=== PATIENT | female | born 1970 | race African-American/Black ===

== ENCOUNTER 2022-10-31 10:29 | Outpatient (CLI) | payer OTHER, SELFPAY ==
[2022-10-31 13:38] LABS: Basophils Absolute Auto 0.03 K/uL (0.00-0.30); Basophils Percent Auto 0.4 % (0.0-3.0); Eosinophils Absolute Auto 0.23 K/uL (0.00-0.50); Eosinophils Percent Auto 3.2 % (0.0-7.0); Hematocrit 31.6 % (33.0-51.0); Hemoglobin* 9.2 gm/dL (12.0-16.0); Immature Granulocytes Abs Auto 0.01 K/uL (0.00-0.30); Immature Granulocytes Pct Auto 0.1 %; Lymphocytes Absolute Auto 2.16 K/uL (0.90-2.90); Lymphocytes Percent Auto 30.2 % (20-44); Mean Corpuscular HGB Conc 29 gm/dL (32-36); Mean Corpuscular Hemoglobin 19 pg (26-34); Mean Corpuscular Volume 66 fL (80-100); Neutrophils Absolute Auto 4.29 K/uL (1.7-7.0); Neutrophils Percent Auto 60.1 % (42.0-72.0); Platelet Count* 432 K/uL (140-440); Red Blood Count 4.77 m/uL (4.00-5.20); White Blood Count* 7.15 K/uL (4.50-11.00)
[2022-10-31 13:46] LABS: Slide Review Reflex No
[2022-10-31 14:02] LABS: Albumin* 3.8 g/dL (3.3-5.0); Chloride* 104 mmol/L (96-114)
[2022-10-31 14:03] LABS: Potassium* 3.8 mmol/L (3.6-5.1); Sodium* 140 mmol/L (135-149)
[2022-10-31 14:05] LABS: Alkaline Phosphatase* 87 U/L (40-150); Aspartate Amino Transferase* 18 U/L (12-35); Bilirubin Total* 0.3 mg/dL (0.1-1.5); Blood Urea Nitrogen* 15 mg/dL (7-30); Carbon Dioxide* 28 mmol/L (20-32); Cholesterol* 141 mg/dL (90-199); Estimated Glomerular Filt Rate 68 ml/min; Glucose* 120 mg/dL (60-115); Total Protein* 6.9 g/dL (6.0-8.3); Triglycerides* 135 mg/dL (40-149)
[2022-10-31 14:06] LABS: Alanine Aminotransferase* 19 U/L (4-35); HDL Cholesterol* 54 mg/dL (>=50); LDL Cholesterol Calculated 60 mg/dL (<100)
[2022-10-31 14:07] LABS: Creatinine Urine 211.2 mg/dL
[2022-10-31 17:12] LABS: Microalbumin Creatinine Ratio 470 mg/g (0-30); Microalbumin Urine 100 mg/dL
[2022-11-02 15:44] LABS: Iron* 21 ug/dL (37-170)
[2022-11-02 15:54] LABS: Percent Iron Saturation 5 % (20-50); Total Iron Binding Capacity 387 ug/dL (265-497)
== END 2022-10-31 10:30 | disposition home or self-care (01) ==
PROVIDERS: PCP Nurse Practitioner Family; Visit Provider Nurse Practitioner Family
DX: E11.9 Type 2 diabetes mellitus without complications (principal); D50.9 Iron deficiency anemia, unspecified; E78.5 Hyperlipidemia, unspecified; I10 Essential (primary) hypertension; Z13.0 Encounter for screening for diseases of the blood and blood-forming organs and certain disorders involving the immune mechanism
CPT/HCPCS: 80053; 80061; 82043; 82570; 83540; 83550; 84443; 85025

== ENCOUNTER 2022-11-02 10:32 | Outpatient (CLI) | payer OTHER, SELFPAY ==
--- NOTE | 2022-11-02 11:00 | CRLHL7_ITS ---
For Patients: As a result of the Century Cures Act, medical imaging exams and procedure reports are released immediately into your electronic medical record. You may view this report before your referring provider. If you have questions, please contact your health care provider. INDICATION: Liver lesion, aortic aneurysm COMPARISON: Renal ultrasound 02/07/2022, CT chest 01/27/2022 TECHNIQUE: Real time guajardo scale imaging and color Doppler analysis was performed of the right upper quadrant. FINDINGS: The liver parenchyma is diffusely coarsened and heterogeneous. There is a hypodense lesion within the anterior liver measuring 6.0 x 4.1 x 5.8 cm which is not appreciated on the prior CT chest although the prior CT was done without contrast. Aneurysm of the abdominal aorta is present measuring 3.2 x 3.9 cm in transverse dimensions and extending over a length of 8.1 cm. The IVC is normal. Right kidney is normal without hydronephrosis and measures 11.4 cm. The visualized pancreas is unremarkable. The gallbladder is absent. The common bile duct measures 6 millimeters. No ascites. IMPRESSION: Hypodense intrahepatic mass measuring 6.0 x 4.1 x 5.8 cm, indeterminate. MRI with and without contrast recommended. Fusiform abdominal aortic aneurysm measuring up to 3.9 cm. Moderately severe hepatic steatosis. Status post cholecystectomy without biliary obstruction. Dictated by Palomo Diaz MD @ 11/02/2022 12:13:57 PM (Electronically Signed)
== END 2022-11-02 10:33 | disposition home or self-care (01) ==
PROVIDERS: PCP Nurse Practitioner Family; Visit Provider Nurse Practitioner Family
DX: K76.9 Liver disease, unspecified (principal); K76.0 Fatty (change of) liver, not elsewhere classified; I71.9 Aortic aneurysm of unspecified site, without rupture
CPT/HCPCS: 76705

== ENCOUNTER 2022-11-17 12:56 | Outpatient (CLI) | payer OTHER, SELFPAY ==
--- NOTE | 2022-11-17 13:00 | CRLHL7_ITS ---
For Patients: As a result of the Century Cures Act, medical imaging exams and procedure reports are released immediately into your electronic medical record. You may view this report before your referring provider. If you have questions, please contact your health care provider. Indication: Hypodense intrahepatic mass, indeterminate on abdominal US Technique: Multiphasic, multisequence MRI of the abdomen, liver protocol, without and with contrast. 20 mL of Dotarem administered intravenously Comparison: Ultrasound dated 11/02/2022 Findings: Somewhat limited by motion (patient and bowel) and body habitus. Non cirrhotic liver morphology. Diffuse hepatic steatosis. The lobulated large liver lesion seen on ultrasound in the inferior right hepatic lobe is also seen on this MRI, and is associated with capsular retraction, mildly T2 hyperintense, with exception of the rim, without restricted diffusion, and there is discontinuous nodular enhancement of the periphery, with gradual filling in until there is complete fill-in. No central scar seen. It measures approximately 5.3 x 3.5 cm. No intra or extrahepatic biliary ductal dilatation. No suspicious filling defects within the biliary system. Status post cholecystectomy. The pancreas parenchyma appears normal on fat saturated T1 weighted images. No suspicious pancreatic lesion following contrast administration. The spleen is normal in size. No ascites. The adrenal glands appear normal. The kidneys enhance symmetrically without hydronephrosis. No suspicious lymphadenopathy within the abdomen. The visualized bowel is not obstructed. The visceral arteries appear patent. No abdominal aortic aneurysm. The portal, hepatic, splenic, and mesenteric veins appear patent. The IVC and renal veins are patent. No pleural effusion in the lung bases. Incidentally noted on some of the coronal sequences obtained there also include the pelvis, is a very large uterus, with multiple large fibroids measuring at least 11.5 x 10 cm, but likely greater in some planes. The largest fibroid measures at least 7.3 x 6.7 cm. Incidentally noted is also intense enhancement and expansion of the L3 vertebral body, with enhancement of the tissues along the left side of the vertebral body, and the ventral epidural space the posterior elements on the left side is also involved. A classic hemangioma seen in the lower thoracic spine, with less avid enhancement, and no extension outside the vertebral body. Impression: 1. Diffuse hepatic steatosis. 2. The lesion in the liver, inferior right hepatic lobe measures 5.3 x 3.5 cm, and has most features of a hepatic hemangioma. The atypical hypo echogenicity on ultrasound is related to the underlying hepatic steatosis. However, the capsular retraction and lobulation of the lesion are slightly atypical thus, a follow-up in 6 months would be reasonable. 3. Intense enhancement and expansion of the L3 vertebral body, paravertebral enhancement including in the ventral epidural space effacing the thecal sac and involvement of the left posterior element. This is certainly atypical, however could represent an aggressive hemangioma and a more classic hemangioma seen in the thoracic spine. A CT of the lumbar spine could be helpful. 4. Very large fibroid uterus with multiple large fibroids, incompletely seen and evaluated. Dictated by Catalino Henderson MD @ 11/19/2022 5:52:40 PM (Electronically Signed)
== END 2022-11-17 12:57 | disposition home or self-care (01) ==
LOC: MRI 12:57
PROVIDERS: PCP Nurse Practitioner Family; Visit Provider Nurse Practitioner Family
DX: R16.0 Hepatomegaly, not elsewhere classified (principal); K76.9 Liver disease, unspecified; K76.0 Fatty (change of) liver, not elsewhere classified; D25.9 Leiomyoma of uterus, unspecified
CPT/HCPCS: 74183; A9575

== ENCOUNTER 2022-12-01 07:39 | Outpatient (CLI) | payer OTHER, SELFPAY ==
--- NOTE | 2022-12-01 07:43 | W.ANESCHARGE ---
Anesthesia Charges Start Date/Time Anesthesia Start Date: 12/01/22 Anesthesia Start Time: 08:34 Stop Date/Time Anesthesia Stop Date: 12/01/22 Anesthesia Stop Time: 09:15
--- NOTE | 2022-12-01 09:24 | W.ANESCHARGE ---
Anesthesia Charges Start Date/Time Anesthesia Start Date: 12/01/22 Anesthesia Start Time: 08:34 Stop Date/Time Anesthesia Stop Date: 12/01/22 Anesthesia Stop Time: 09:15
== END 2022-12-01 07:40 | disposition home or self-care (01) ==
PROVIDERS: PCP Nurse Practitioner Family; Visit Provider Internal Medicine
DX: D50.9 Iron deficiency anemia, unspecified (principal); K57.30 Diverticulosis of large intestine without perforation or abscess without bleeding; K21.9 Gastro-esophageal reflux disease without esophagitis
CPT/HCPCS: 00813; 43239; 45378; 88305; J2704

== ENCOUNTER 2022-12-04 09:34 | Outpatient (CLI) | payer OTHER, SELFPAY ==
--- NOTE | 2022-12-04 10:00 | CRLHL7_ITS ---
For Patients: As a result of the Century Cures Act, medical imaging exams and procedure reports are released immediately into your electronic medical record. You may view this report before your referring provider. If you have questions, please contact your health care provider. INDICATION: Low back pain. COMPARISON: 11/17/2022. Technique noncontrast CT lumbar spine FINDINGS: Degenerative retrolisthesis of L3 on L4 and L4 on L5 measures approximately 3 mm. No fractures. No vertebral body loss of height. No evidence injury. No suspicious osseous lesions. Vertebral body hemangioma T11. Trabeculated appearance of the L3 vertebral body with subtle bulging of the posterior margin. Findings most consistent with a large vertebral body hemangioma. Lumbar spondylosis with multilevel facet arthropathy. [id number] L1-2: No spinal canal neural foraminal narrowing. L2-3: Mild annular bulge. No spinal canal or neural foraminal narrowing. L3-4: Annular bulge. No narrowing of spinal canal. No neural foraminal narrowing. L4-5: Disc degeneration. Posterior disc bulge. Mild narrowing of spinal canal. No neural foraminal narrowing. L5-S1: Advanced disc degeneration. Loss disc height. Posterior disc bulge or disc osteophyte complex. No narrowing of spinal canal. No fern impingement of the traversing S1 nerve roots. Mild narrowing of the bilateral foramina. Mild facet arthropathy. Normal visualized SI joints. Normal paraspinal soft tissues. Cholecystectomy clips. IMPRESSION: 1. Degenerative retrolisthesis of L3 on L4 and L4 on L5. 2. No acute fractures. 3. 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 Associated subtle bulging of the posterior margin. Small vertebral body hemangioma T11. 4. Lumbar spondylosis. 5. At L4-5, mild narrowing of the spinal canal 6. At L5-S1, advanced disc degeneration. Posterior disc bulge or disc osteophyte complex. No narrowing of the spinal canal. Mild narrowing of the bilateral neural foramina Please note that all CT scans at this facility use dose modulation, iterative reconstruction, and/or weight-based dosing when appropriate to reduce radiation dose to as low as reasonably achievable. Dictated by Supa Yarbrough MD @ 12/06/2022 8:28:36 AM (Electronically Signed)
== END 2022-12-04 09:35 | disposition home or self-care (01) ==
LOC: CT 09:35
PROVIDERS: PCP Nurse Practitioner Family; Visit Provider Nurse Practitioner Family
DX: M54.50 Low back pain, unspecified (principal); M43.16 Spondylolisthesis, lumbar region; M47.896 Other spondylosis, lumbar region; M51.37 Other intervertebral disc degeneration, lumbosacral region; R93.5 Abnormal findings on diagnostic imaging of other abdominal regions, including retroperitoneum
CPT/HCPCS: 72131

== ENCOUNTER 2023-01-09 11:13 | Outpatient (CLI) | payer OTHER, SELFPAY ==
--- NOTE | 2023-01-09 11:30 | CRLHL7_ITS ---
For Patients: As a result of the Cures Act, medical imaging exams and procedure reports are released immediately into your electronic medical record. You may view this report before your referring provider. If you have questions, please contact your health care provider. BILATERAL SCREENING MAMMOGRAM WITH COMPUTER-AIDED DETECTION AND TOMOSYNTHESIS TECHNIQUE: CC and MLO views were obtained. These mammographic images have been obtained using full-field digital technique. These mammographic images were interpreted with the benefit of computer-aided detection. Breast Tomosynthesis was used in this interpretation. COMPARISON FILM: 11/29/21, 01/18/21, 08/11/19. FINDINGS: There are scattered areas of fibroglandular density IMPRESSION: There is no radiographic evidence for malignancy. ASSESSMENT: BI-RADS Category 1: Negative RECOMMENDATION: Routine screening mammogram in 1 year. A lay language report of this examination will be provided to the patient. Jing Anderson M.D. Diagnostic/Breast Radiologist [email or web address] Transcribed: 12:11 p.dalton xiao/Dictated by: Jing Anderson MD @ 01/09/2023 11:54:00 AM (Electronically Signed)
== END 2023-01-09 11:14 | disposition home or self-care (01) ==
LOC: MAMMO 11:14
PROVIDERS: PCP Nurse Practitioner Family; Visit Provider Nurse Practitioner Family
DX: Z12.31 Encounter for screening mammogram for malignant neoplasm of breast (principal)
CPT/HCPCS: 77063; 77067

== ENCOUNTER 2023-01-15 13:18 | Outpatient (RCR) | payer OTHER, SELFPAY | END 2023-01-30 13:31 | disposition home or self-care (01) | PROVIDERS: PCP Nurse Practitioner Family; Visit Provider Family Medicine | DX: M54.50 Low back pain, unspecified (principal); Z74.09 Other reduced mobility; M62.81 Muscle weakness (generalized); Z51.89 Encounter for other specified aftercare | CPT/HCPCS: 97110; 97140; 97161 ==

== ENCOUNTER 2023-01-18 13:58 | Outpatient (CLI) | payer OTHER, SELFPAY ==
--- NOTE | 2023-01-18 14:00 | CRLHL7_ITS ---
For Patients: As a result of the Century Cures Act, medical imaging exams and procedure reports are released immediately into your electronic medical record. You may view this report before your referring provider. If you have questions, please contact your health care provider. INDICATION: Spotting TECHNIQUE: Ultrasound pelvis transabdominal and transvaginal for better assessment or to better visualize the endometrium. Real time sonographic images with Spectral and color Doppler imaging of the ovaries were obtained. COMPARISON: None FINDINGS: Uterus: 10.8 centimeter x 7.6 centimeter x 12.4 centimeter. Normal echotexture of the myometrium. 6.6 centimeter x 6.0 centimeter x 6.9 centimeter right mid uterine fibroid. 4.2 centimeter x 4.2 centimeter x 4.5 centimeter left superior uterine fibroid. 2.9 centimeter x 3.6 centimeter x 4.6 centimeter left mid uterine fibroid. Endometrium: Transvaginal imaging was performed to better evaluate the endometrium. 1.9 centimeter in thickness. No sign of endometrial mass or fluid. Right ovary: Not visualized. Left ovary: Not visualized. Cul-de-sac: No significant free fluid. IMPRESSION: Three uterine fibroids with the largest measuring up to 6.9 centimeters. The ovaries are not visualized. Thickened endometrium at 1.9 centimeters. Dictated by Palomo Rosenberg MD @ 01/18/2023 3:28:35 PM (Electronically Signed)
== END 2023-01-18 13:59 | disposition home or self-care (01) ==
LOC: US 13:59
PROVIDERS: PCP Nurse Practitioner Family; Visit Provider Nurse Practitioner Family
DX: N92.3 Ovulation bleeding (principal); D25.9 Leiomyoma of uterus, unspecified; R93.89 Abnormal findings on diagnostic imaging of other specified body structures; N95.1 Menopausal and female climacteric states
CPT/HCPCS: 76830; 76856

== ENCOUNTER 2023-01-24 13:01 | Outpatient (CLI) | payer OTHER, SELFPAY ==
[2023-01-24 16:50] LABS: Chlamydia DNA Amplified* NOT DETECTED (No Detected); GC DNA Amplified* NOT DETECTED (No Detected)
== END 2023-01-24 13:02 | disposition home or self-care (01) ==
PROVIDERS: PCP Nurse Practitioner Family; Visit Provider Obstetrics & Gynecology
DX: N89.8 Other specified noninflammatory disorders of vagina (principal)
CPT/HCPCS: 0353U; 87491; 87591

== ENCOUNTER 2023-02-02 15:21 | Outpatient (CLI) | payer OTHER, SELFPAY ==
[2023-02-02 15:22] LABS: Basophils Absolute Auto 0.05 K/uL (0.00-0.30); Basophils Percent Auto 0.7 % (0.0-3.0); Eosinophils Absolute Auto 0.09 K/uL (0.00-0.50); Eosinophils Percent Auto 1.3 % (0.0-7.0); Hematocrit 41.4 % (33.0-51.0); Hemoglobin* 13.6 gm/dL (12.0-16.0); Immature Granulocytes Abs Auto 0.01 K/uL (0.00-0.30); Immature Granulocytes Pct Auto 0.1 %; Lymphocytes Absolute Auto 2.72 K/uL (0.90-2.90); Lymphocytes Percent Auto 39.3 % (20-44); Mean Corpuscular HGB Conc 33 gm/dL (32-36); Mean Corpuscular Hemoglobin 27 pg (26-34); Mean Corpuscular Volume 83 fL (80-100); Monocytes Percent Auto 7.4 % (0.0-11.0); Neutrophils Absolute Auto 3.54 K/uL (1.7-7.0); Neutrophils Percent Auto 51.2 % (42.0-72.0); Platelet Count* 353 K/uL (140-440); RDW Coefficient of Variation % 21.7 % (11.5-15.5); Red Blood Count 4.99 m/uL (4.00-5.20); White Blood Count* 6.92 K/uL (4.50-11.00)
[2023-02-02 15:33] LABS: Iron* 68 ug/dL (37-170)
[2023-02-02 15:37] LABS: Slide Review Reflex No
[2023-02-02 15:43] LABS: Percent Iron Saturation 22 % (20-50); Total Iron Binding Capacity 318 ug/dL (265-497)
== END 2023-02-02 15:22 | disposition home or self-care (01) ==
PROVIDERS: PCP Nurse Practitioner Family; Visit Provider Nurse Practitioner Family
DX: D50.9 Iron deficiency anemia, unspecified (principal)
CPT/HCPCS: 83540; 83550; 85025

== ENCOUNTER 2023-05-08 12:14 | Outpatient (CLI) | payer OTHER, SELFPAY | END 2023-05-08 12:15 | disposition home or self-care (01) | PROVIDERS: PCP Nurse Practitioner Family; Visit Provider Nurse Practitioner Family | DX: N93.9 Abnormal uterine and vaginal bleeding, unspecified (principal); N89.8 Other specified noninflammatory disorders of vagina | CPT/HCPCS: 83540; 83550; 85025 ==

== ENCOUNTER 2023-06-04 13:04 | Outpatient (CLI) | payer OTHER, SELFPAY ==
--- NOTE | 2023-06-04 13:00 | CRLHL7_ITS ---
For Patients: As a result of the Cures Act, medical imaging exams and procedure reports are released immediately into your electronic medical record. You may view this report before your referring provider. If you have questions, please contact your health care provider. INDICATION: Follow up liver lesion. TECHNIQUE: Right upper quadrant ultrasound. COMPARISON: November 02, 2022. Correlation is made with an MRI of the liver November 17, 2022. FINDINGS: Echogenic liver compatible with diffuse hepatic fatty infiltration. There is a slightly lobulated hypoechoic mass within the right hepatic lobe subcapsular location measuring 4.4 x 3.9 x 4.2 cm, previously 6.0 x 4.1 x 5.8 cm. According to the MRI report this may reflect an atypical hemangioma. Typically hemangiomas are hyperechoic but the liver is hyperechoic related to fatty infiltration and thus may give an atypical appearance of a presumed hemangioma. This is now somewhat smaller compared to the prior study. No biliary ductal dilatation. No right upper quadrant ascites. Surgically absent gallbladder. The extrahepatic common bile duct is normal at 7 mm. The visualized pancreas and right kidney are grossly unremarkable. The visualized aorta is of normal caliber. IMPRESSION: Hypoechoic, slightly lobulated mass right hepatic lobe measuring 4.4 x 3.9 x 4.2 cm, previously 6.0 x 4.1 x 5.8 cm. Please see MRI November 17, 2022 which suggested a cavernous hemangioma. Dictated by Roberto Philip MD @ 06/06/2023 12:20:29 PM (Electronically Signed)
== END 2023-06-04 13:05 | disposition home or self-care (01) ==
LOC: US 13:04
PROVIDERS: PCP Nurse Practitioner Family; Visit Provider Nurse Practitioner Family
DX: K76.9 Liver disease, unspecified (principal); R16.0 Hepatomegaly, not elsewhere classified
CPT/HCPCS: 76705

== ENCOUNTER 2023-11-19 10:15 | Outpatient (CLI) | payer OTHER, SELFPAY ==
[2023-11-19 15:32] LABS: SARS PCR* Negative SARS-CoV-2 (Negative)
== END 2023-11-19 10:16 | disposition home or self-care (01) ==
LOC: KYNREF 10:15
PROVIDERS: PCP Nurse Practitioner Family; Visit Provider Nurse Practitioner Family
DX: R09.89 Other specified symptoms and signs involving the circulatory and respiratory systems (principal); Z11.52 Encounter for screening for COVID-19
CPT/HCPCS: 87635

== ENCOUNTER 2023-11-27 10:35 | Outpatient (CLI) | payer OTHER, SELFPAY | END 2023-11-27 10:36 | disposition home or self-care (01) | PROVIDERS: PCP Nurse Practitioner Family; Visit Provider Nurse Practitioner Family | DX: Z13.0 Encounter for screening for diseases of the blood and blood-forming organs and certain disorders involving the immune mechanism (principal); Z13.21 Encounter for screening for nutritional disorder; E11.9 Type 2 diabetes mellitus without complications; E78.5 Hyperlipidemia, unspecified; I10 Essential (primary) hypertension | CPT/HCPCS: 80053; 80061; 82043; 82306; 82570; 84443; 85025 ==

== ENCOUNTER 2024-01-01 07:18 | Outpatient (CLI) | payer OTHER, SELFPAY ==
--- NOTE | 2024-01-01 07:15 | US_ITS ---
Patient: RADHA RANGEL Facility:?[facility] Patient ID:?[id number] Site Patient ID:?[id number]. Site :?1970 Study:?US-Abdomen AAA-01/01/2024 8:02:29 AM Ordering Physician:SHAVONNE Final Report: Examination: US abdominal aorta Indication: Recheck ectatic aorta Technique: Jones scale and color Doppler images of the aorta and common iliac arteries are obtained. Comparison: 06/04/2023 abdominal ultrasound Findings: Proximal aorta: 1.7 x 1.8 cm Mid aorta: 2.7 x 2.2 cm, previously measuring 2.9 cm Distal aorta: 1.4 x 1.3 cm Right common iliac artery: 1.2 x 1.5 cm Left common iliac artery: 1.1 x 1.4 cm Recommended imaging interval for ectatic aorta: 2.5-2.9 cm: 5 years Impression: No aortic aneurysm. Hepatic steatosis again noted. Dictated by Palomo Diaz MD @ 01/01/2024 10:48:23 AM Signed by:?Palomo Diaz MD @01/01/2024 10:48:23 AM (Electronic Signature)
== END 2024-01-01 07:19 | disposition home or self-care (01) ==
PROVIDERS: PCP Nurse Practitioner Family; Visit Provider Nurse Practitioner Family
DX: I71.9 Aortic aneurysm of unspecified site, without rupture (principal); K76.0 Fatty (change of) liver, not elsewhere classified
CPT/HCPCS: 76775

== ENCOUNTER 2024-01-09 13:35 | Outpatient (CLI) | payer OTHER, SELFPAY ==
--- NOTE | 2024-01-09 14:00 | US_ITS ---
Patient: RADHA RANGEL Facility:?[facility] Patient ID:?[id number] Site Patient ID:?[id number]. Site :?1970 Study:?US-Abdomen/Pelvis RENAL DOPPLER / INTERVENT RAD TO R-01/09/2024 2:53:50 PM Ordering Physician:?EDGAR PHILLIPS M.D. Final Report: INDICATION: Essential hypertension; difficult to control. COMPARISON: Ultrasound examination of the kidneys bilateral and duplex ultrasound evaluation renal arteries bilateral February 07, 2022. TECHNIQUE: Ultrasound examination the kidneys bilateral; duplex ultrasound evaluation renal arteries bilateral; color Doppler duplex assessment. FINDINGS: The right kidney measures 12.3 x 3.7 x 4.9 cm and the left kidney measures 12.1 x 5.7 x 6 cm. Normal echogenic pattern appearing cortex bilaterally. Normal thickness of the renal cortices bilaterally measuring 1.3 cm on the right and 1.5 cm on the left. Single renal artery on each side. Peak systolic velocity within the juxtarenal abdominal aorta measures 124 cm/second. Peak systolic velocity within the right renal artery measures 98 cm/second and the left renal artery 109 cm/second with calculated renal artery to aortic ratio 0.8 on the right and 1.2 on the left. The acceleration indices and the resistive indices are normal bilaterally. IMPRESSION: 1. Normal ultrasound examination of the kidneys on both sides. 2. No sonographic evidence of hemodynamically significant renal artery stenosis on either side. 3. No interval change Dictated by Sylvia Gómez MD @ 01/10/2024 10:39:38 AM Signed by:?Sylvia Gómez MD @01/10/2024 10:39:38 AM (Electronic Signature)
== END 2024-01-09 13:36 | disposition home or self-care (01) ==
LOC: US 13:37
PROVIDERS: PCP Nurse Practitioner Family; Visit Provider Internal Medicine Nephrology
DX: I10 Essential (primary) hypertension (principal)
CPT/HCPCS: 76775; 93975

== ENCOUNTER 2024-01-14 11:13 | Outpatient (CLI) | payer OTHER, SELFPAY ==
--- NOTE | 2024-01-14 10:45 | MM_ITS ---
Patient: RADHA RANGEL Facility:?[facility] Patient ID:?[id number] Site Patient ID:?[id number]. Site :?1970 Study:?XRay-Breast Bilateral 3D W/CAD-01/14/2024 11:47:39 AM Ordering Physician:Rea Final Report: BILATERAL SCREENING MAMMOGRAM WITH COMPUTER-AIDED DETECTION AND TOMOSYNTHESIS TECHNIQUE: CC and MLO views were obtained. These mammographic images have been obtained using full-field digital technique. These mammographic images were interpreted with the benefit of computer-aided detection. Breast tomosynthesis was used in this interpretation. COMPARISON FILM: 01/09/23, 11/29/21, 01/18/21. FINDINGS: There are scattered areas of fibroglandular density. IMPRESSION: There is no radiographic evidence for malignancy. ASSESSMENT: BI-RADS Category 2: Benign RECOMMENDATION: Routine screening mammogram in 1 year. A lay language report of this examination will be provided to the patient. PIPE ESCALANTE M.D. Diagnostic Radiologist [email or web address] D& Transcribed: 11:[address]/Dictated by: Pipe Escalante MD @ 01/15/2024 10:37:00 AM Signed by:?Pipe Escalante MD @01/15/2024 12:07:16 PM (Electronic Signature)
== END 2024-01-14 11:14 | disposition home or self-care (01) ==
LOC: MAMMO 11:14
PROVIDERS: PCP Nurse Practitioner Family; Visit Provider Nurse Practitioner Family
DX: Z12.31 Encounter for screening mammogram for malignant neoplasm of breast (principal)
CPT/HCPCS: 77063; 77067

== ENCOUNTER 2024-01-15 16:46 | Outpatient (CLI) | payer OTHER, SELFPAY | END 2024-01-15 16:47 | disposition home or self-care (01) | LOC: NFLDREF 01-16 06:44 | PROVIDERS: PCP Nurse Practitioner Family; Referring Provider Nurse Practitioner Family; Visit Provider Internal Medicine Nephrology | DX: I10 Essential (primary) hypertension (principal) | CPT/HCPCS: 80048; 82088; 84244 ==

== ENCOUNTER 2024-02-06 11:00 | Outpatient (CLI) | payer OTHER, SELFPAY | END 2024-02-06 11:01 | disposition home or self-care (01) | LOC: NFLDREF 02-07 07:19 | PROVIDERS: PCP Nurse Practitioner Family; Referring Provider Nurse Practitioner Family; Visit Provider Internal Medicine Nephrology | DX: I10 Essential (primary) hypertension (principal); Z79.899 Other long term (current) drug therapy; R82.90 Unspecified abnormal findings in urine | CPT/HCPCS: 80048; 80069; 82570; 84156; 87086 ==

== ENCOUNTER 2024-03-31 10:07 | Outpatient (CLI) | payer OTHER, SELFPAY | END 2024-03-31 10:08 | disposition home or self-care (01) | PROVIDERS: PCP Nurse Practitioner Family; Visit Provider Nurse Practitioner Family | DX: E55.9 Vitamin D deficiency, unspecified (principal); E11.9 Type 2 diabetes mellitus without complications | CPT/HCPCS: 82306 ==

== ENCOUNTER 2024-05-27 12:49 | Outpatient (CLI) | payer OTHER, SELFPAY ==
--- OUTSIDE RECORDS SUMMARY | 2024-05-30 13:04 | XMS_ITS | Encounter Summary ---
Author Organization [facility] Address [address] [place] [id number] Care Team Providers Care Sybase Developer Name Role Phone Elsewhere, Pcp Primary Care Provider Unavailabl e Reason for Visit * Appointment Request (Routine) - Closed Specialty Diagnoses / Procedures Referred By Contac t Referred To Contact Nephrology and Hypertension Referral ID Status Reason Start Date Expiration Date Visits Re quested Visits Authorized [id number] Closed 05/16/2024 05/16/2025 1 1 Encounter Details Date Type Department Care Team (Late st Contact Info) Description 05/29/2024 4:00 PM CDT External Outreach Division of Nephrology and Hypertension in [place], [place] [address] [place] [phone] Evelyn Cordon M.D., Ph.D. [address] [place] [phone] Arrived Social History Tobacco Use Types Packs/Day Years Used Date Smoking Tobacco: Never Passive Smoke Exposure: Past Smokeless Tobacco: Never Passive Exposure Comments:[place] Alcohol Use Standard Drinks/Week Comments Not Currently 0 (1 standard drink = 0.6 oz pur e alcohol) Humiliation, Afraid, Rape, and Kick questionnair e Answer Date Recorded Within the last year, have y ou been afraid of your partner or ex-partner? No 03/10/2023 Within the last year, have y ou been humiliated or emotionally abused in other ways by your partner or ex-partner? No Within the last year, have y ou been kicked, hit, slapped, or otherwise physically hurt by your partner or ex-partner? No 03/10/2023 Within the last year, have y ou been raped or forced to have any kind of sexual activity by your partner or ex-partner? No 03/10/2023 Social Connection and Isolation Panel [NHANES] A nswer Date Recorded Frequency of Communication w ith Friends and Family Once a week 10/17/2019 Frequency of Social Gatherin gs with Friends and Family Patient declined 10/17/2019 Attends Denominational Services 1 to 4 times per year 10/17/2019 Active Member of Clubs or Organizations Yes 10/17/2019 Attends Club or Organization Meetings 1 to 4 teresa es per year 10/17/2019 Marital Status 10/17/2019 AUDIT-C Answer Date Recorded Frequency of Alcohol Consumption Never 10/17/2019 Average Number of Drinks Patient declined 2019 Frequency of Binge Drinking Never 12/2019 Overall Financial Resource Strain (CARDIA) Answe r Date Recorded How hard is it for you to pa y for the very basics like food, housing, medical care, and heating? Not very hard 03/10/2023 [facility] - Occupational Stress Questionnaire Answer Date Recorded Feeling of Stress Only a little 10/17/2019 Exercise Vital Sign Answer Date Recorde d On average, how many days pe r week do you engage in moderate to strenuous exercise (like a brisk walk)? 0 days 03/10/2023 On average, how many minutes do you engage in exercise at this level? 0 min 03/10/2023 Hunger Vital Sign Answer Date Recorded Within the past 12 months, y ou worried that your food would run out before you got the money to buy more. Never true 03/10/20 23 Within the past 12 months, t he food you bought just didn't last and you didn't have money to get more. Never true 03/10/2023 PRAPARE - Transportation Answer Date Re corded In the past 12 months, has l ack of transportation kept you from medical appointments or from getting medications? No 02/13 In the past 12 months, has l ack of transportation kept you from meetings, work, or from getting things needed for daily living? No 03/10/2023 Nutrition Answer Date Recorded Nutrition: EVOO Fat Source Unknown 03/10 On average, how many serving s of fruits and vegetables do you eat per day (serving size is equal to 1 cup or approximately the size of a tennis ball)? 3-5 03/10/2023 Dental Answer Date Recorded Dental: Regular Dentist No 03/10/20 Employment Answer Date Recorded Employment status Unemployed/not in th e paid workforce but seeking employment 03/10/2023 Housing Stability Answer Date Recorded What is your living situation today? I have a [facility] place to live 03/10/2023 Education Answer Date Recorded What is the highest level of school you have completed or the highest degree you have received? Some college, no degree 10/17/2019 Sex and Gender Information Value Date Recorded Sex Assigned at Female 03/10/2023 7:28 PM CDT Gender Identity Female 10/28/2019 8:20 PM BUSINESS OFFICE COORDINATOR Sexual Orientation Straight 10/28/2019 8: 20 PM BUSINESS OFFICE COORDINATOR documented as of this encounter Plan of Treatment Not on file documented as of this encounter Visit Diagnoses Not on filedocumented in this encounter Care Teams Sybase Developer Relationship Specialty Start Date End Date Elsewhere, Pcp PCP - General Emergency Medicine 03/14/23 documented as of this encounter
--- OUTSIDE RECORDS SUMMARY | 2024-05-30 13:04 | XMS_ITS ---
Author Organization [facility] Address [address] [place] [address] Care Team Providers Care Audit Tech Name Role Phone Unavailable Unavailable Unavailable Surgery Details Not on file Complications Check Surgery Details section. Procedure Estimated Blood Loss Check Surgery Details section. Procedure Findings Check Surgery Details section. Procedure Specimens Taken Check Surgery Details section.
--- OUTSIDE RECORDS SUMMARY | 2024-05-30 13:04 | XMS_ITS | Clinical Summary ---
Author Organization [facility] Address [address] [place] [id number] Care Team Providers Care Soccer Ball Assembler Name Role Phone Elsewhere, Pcp Primary Care Provider Unavailabl e Source Comments Patient records contain information from all sites at [facility]. For routine questions regarding patient records, call [phone] during business hours, M-F 8:00 AM - 5:00 PM Central Time. Record requests for emergency care only can be directed to [phone] at any time.[facility] Allergies No known active allergies Medications Medication Sig Dispensed Refills Start Date End Date Status valsartan-hydroCHLOR Othiazide (DIOVAN-HCT) 160-25 mg per tablet Take 1 tablet by mouth daily. Active simvastatin (ZOCOR) 20 mg tablet Take 20 mg by mouth at bedtime. Active omeprazole (PriLOSEC) [address] capsule Take 40 mg by mouth every morning before breakfast. Active albuterol sulfate (ProAir RespiClick) 90 mcg/actuation aerosol powdr breath activated inhaler Inhale 2 puffs as needed for wheezing. Active dilTIAZem SR (CARDIZEM SR) 120 mg 12 hr capsule Take 120 mg by mouth 3 (three) times a day. 02/24/2023 Active Flovent HFA 220 mcg/actuation inhaler Inhale 2 puffs 2 (two) times a day. 02/26/2023 Active medroxyPROGESTERone (PROVERA) 10 mg tablet Take 10 mg by mouth daily. 03/13/2023 Active cloNIDine (CATAPRES) 0.3 mg tablet Take 0.3 mg by mouth 2 (two) times a day. 01/28/2023 Active metFORMIN XR (GLUCOPHAGE-XR) 500 mg 24 hr tablet Take 500 mg by mouth daily. 01/28/2023 Active citalopram (CeleXA) 10 mg tablet Take 10 mg by mouth daily. 04/25/2023 Active oxyCODONE (ROXICODONE) 5 mg immediate release tabletIndications:Ac roselia Pain Take 1 tablet (5 mg total) by mouth every 6 (six) hours as needed for pain Indication: Acute Pain. 4 tablet 08/22/2023 Active valsartan (DIOVAN) 160 mg tablet Take 1 tablet (160 mg total) by mouth daily. 90 tablet 3 01/01/2024 12/31/2024 Active spironolactone (ALDACTONE) 25 mg tablet Take 1 tablet (25 mg total) by mouth daily. 90 tablet 3 01/23/2024 01/22/2025 Active cloNIDine (CATAPRES) 0.1 mg tablet Take 2 tablets x 3 days, 1 tablet x 3 days, 1 tablet every other day x 2 days and then stop 11 tablet 03/05/2024 Active Active Problems Problem Noted Date Diagnosed Date Abnormal Uterine And Vaginal Bleeding Unspecifie d 08/21/2023 Assessment & Plan (08/21/2023 2:28 PM POOLING OPERATOR): Continue Provera Obesity Body Mass Index 30-39.9 Adult 08/21/2023 Assessment & Plan (08/21/2023 2:39 PM POOLING OPERATOR): Body mass index is 39.62 kg/m??. Hemangioma Site 04/04/2023 Lesion Spine Thoracic 12/25/2022 Assessment & Plan (08/21/2023 2:42 PM POOLING OPERATOR): She denies radicular symptoms and feels she has mild lower extremity weakness. She reports worsening of back pain with activity. She uses hemp cream as needed for pain management. Imaging was completed demonstrating hemangiomas at C6, T11 and an aggressive hemangioma at L3 with epidural and foraminal extension as well as extension into the left paraspinal region. She was evaluated by orthopedic surgery and was felt not to be a surgical candidate, and has been referred for radiation. Last dose of radiation April 27, 2023. Anxiety Disorder Unspecified 06/15/2021 Assessment & Plan (08/21/2023 2:29 PM POOLING OPERATOR): Continue Celexa Liver Disease 11/15/2020 Overview (08/21/2023): [place] enhancing lesion in the inferior right lobe of the liver measuring 8.4 x 5.5 cm - 09/2019 Assessment & Plan (08/21/2023 2:36 PM POOLING OPERATOR): [place] CT enhancing lesion in the inferior right lobe of the liver measuring 8.4 x 5.5 cm - 09/2019 Thoracic Aortic Aneurysm Without Rupture Unspeci fied 11/15/2020 Overview (08/21/2023): aneurysmal enlargement of ascending aorta anterior arch measuring 4.1 cm in maximal diameter - 09/[address] [place] Assessment & Plan (08/21/2023 2:39 PM POOLING OPERATOR): aneurysmal enlargement of ascending aorta anterior arch measuring 4.1 cm in maximal diameter - 09/[address] [place] Dyslipidemia 11/10/2020 Assessment & Plan (08/21/2023 2:32 PM POOLING OPERATOR): Continue simvastatin Lymphadenopathy 10/30/2019 Diabetes Mellitus Type 2 Without Complication Assessment & Plan (08/21/2023 2:32 PM POOLING OPERATOR): Lab Results Component Value Date HGBA1C 6.2 (H) 04/23/2023 Checks blood sugar at home and notes it ranges between 85-120. Denies episodes of hypoglycemia. Treated with metformin once daily. She will hold 24 hours prior to procedure. Asthma Mild Persistent 07/10/2019 Assessment & Plan (08/21/2023 2:30 PM POOLING OPERATOR): Currently on Flovent and p.r.n. albuterol. Patient currently feels breathing is at baseline. Reports using albuterol 2-3 times per day. Last exacerbation occurred May 2023. Notes that breathing feels at baseline today. Patient will continue all inhalers perioperatively, Gastro-Esophageal Reflux Dis ease With Esophagitis Without Bleeding 07/10/2019 Assessment & Plan (08/21/2023 2:33 PM POOLING OPERATOR): Asymptomatic on Prilosec which she will continue perioperatively Hypertension Essential Primary 07/10/2019 Assessment & Plan (08/21/2023 2:34 PM POOLING OPERATOR): Blood pressure 150/90. Treated with clonidine, diltiazem, and valsartan hydrochlorothiazide. She will continue the clonidine and diltiazem preoperatively. Hold valsartan/hydrochlorothiazide 24 hours prior to procedure. Resolved Problems Problem Noted Date Diagnosed Date Resolved Date Diabetes Mellitus NOS 04/10/20232022 Encounters Date Type Department Care Team Description 05/29/2024 4:00 PM CDT External Outreach Division of Nephrology and Hypertension in [place], [place] [address] [place] [address] Evelyn Cordon M.D., Ph.D. Arrived 03/13/2024 Refill Division of Nephrology and Hypertension in [place], [place] [address] [place] [address] Evelyn Cordon M.D., Ph.D. Med Refill 03/05/2024 11:00 AM CDT External Outreach Division of Nephrology and Hypertension in [place], [place] [address] [place] [address] Evelyn Cordon M.D., Ph.D. Hypertension Essential Primary (Primary Dx); Proteinuria from Last 3 Months Immunizations Name Administration Dates Next Due Influenza, Unspecified 09/27/2021 PCV13 05/13/2020 PPSV23 06/10/2021 Tdap 05/13/2020 influenza vaccine quad (FLUZ ONE/FLUARIX) (6 months and older)(PF) 10/31/2022,08/19/2020,08/18/2019 Family History Medical History Relation Name Comments Diabetes Father Mother Hyperlipidemia Father Mother Stroke Father Mother Colon cancer Mother Radha Palafox Hypertension Mother Radha Palafox Relation Name Status Comments Father Mother Alive Mother Radha Palafox Social History Tobacco Use Types Packs/Day Years Used Date Smoking Tobacco: Never Passive Smoke Exposure: Past Smokeless Tobacco: Never Tobacco Cessation:Counseling Given: Not Answered Passive Exposure Comments:Worked in [employer] for years Alcohol Use Standard Drinks/Week Comments [...] Friends and Family Patient declined 10/17/2019 Attends [employer] 1 to 4 times per year [...] care, and heating? Not very hard 03/10/2023 [facility] [place] of Occupat ional Health - Occupational Stress [...] money to buy more. Never true 03/10/20 Within the past 12 months, t he [...] your living situation today? I have a [facility] place to live 03/10/2023 Education Answer Date Recorded What is the highest level of school you have completed or the highest degree you have received? Some college, no degree 10/17/2019 Sex and Gender Information Value Date Recorded Sex Assigned at Female 03/10/2023 7:28 PM CDT Gender Identity Female 10/28/2019 8:20 PM POOLING OPERATOR Sexual Orientation Straight 10/28/2019 8: 20 PM POOLING OPERATOR Last Filed Vital Signs Vital Sign Reading Time Taken Comments Blood Pressure 134/73 08/22/2023 2:30 PM POOLING OPERATOR Pulse 70 08/22/2023 2:40 PM POOLING OPERATOR Temperature 36.7 ??C (98 ??F) 08/22/2023 12:06 PM POOLING OPERATOR Respiratory Rate 12 08/22/2023 2:41 PM POOLING OPERATOR Oxygen Saturation 95% 08/22/2023 2:40 PM POOLING OPERATOR Inhaled Oxygen Concentration - - Weight 114 kg (252 lb 6.4 oz) 10/29/2023 3:13 PM POOLING OPERATOR Height 165.1 cm (5' 5) 08/21/2023 2:55 PM POOLING OPERATOR Body Mass Index 42 08/21/2023 2:55 PM POOLING OPERATOR Plan of Treatment Health Maintenance Due Date Last Done Comments CT Colonography 1970 Cologuard 1970 Colonoscopy 1970 Colorectal Cancer Surveillance 1970 Diabetic Office Visit with Foot Exam 1970 Dilated Eye Exam 1970 HIV Screening 1970 Hepatitis C Screening 1970 Urine Albumin 1970 Hepatitis B Vaccines (1 of 3 - 19+ 3-dose series) 1989 Zoster Vaccines (1 of 2) 1989 COVID-19 Vaccine (3 - Moderna risk series) 01/05/2021 12/08/2020, 11/10/2020 Abdominal Ultrasound 08/28/2021 02/25/2021 Mammogram 01/18/2022 01/18/2021, 04/0 03/2021, 08/11/2019 Cervical Cancer Screening 08/14/2022 08/14/2019 Depression Screening (Annual PHQ-2) 10/15/2023 Hemoglobin A1C 10/24/2023 04/23/2023, 09/0 10/2020, 11/15/2020, Additional history exists Office Visit for Blood Pressure Check / Re-check 11/21/2023 08/21/2023 Influenza Vaccine (#1) 2024 , 09/27/2021, 08/19/2020, Additional history exists Creatinine Level (Kidney Function Test) 02/06/2025 02/07/2024, 10/29/2023, 04/23/2023, Additional history exists Potassium Level 02/06/2025 02/07/2024, 07, 02/04/2021, Additional history exists Sodium Level 02/06/2025 02/07/2024, 071 , 02/04/2021, Additional history exists Lipid (Cholesterol) Screening 11/15/2025 11/15/2020 Pneumococcal vaccine (0-64 years) (3 of 3 - PPSV23 or PCV20) 06/10/2026 06/10/2021, 05/13/2020 DTaP,Tdap,and Td Vaccines (3 - Td or Tdap) 12/24/2033 12/25/2023, 05/13/2020 HPV Vaccines Aged Out No longer eligi ble based on patient's age to complete this topic Medical Devices Implanted Type Area Watch Technician Device Identifier Shelf Expiration Date Model / Serial / Lot Cmnt W/Mxr Kyp - [id number] Implanted:Qty: 1 on 08/22/2023 by Jasper Moreno M.D. at [facility] [employer] 07/14/2025 [id number] / / [id number] Procedures Procedure Name Priority Date/Time Associated Diagnosis Comments CREATININE WITH EGFR, S/P Routine 10/29/2023 8:41 AM POOLING OPERATOR Hemangioma Site HEMOGLOBIN A1C, B Routine 04/23/2023 3:5 8 PM CDT Diabetes Mellitus Type 2 Without Complication (HCC) BASIC METABOLIC PANEL, S/P Routine 04/23/2023 3:58 PM CDT Preanesthetic Medical Exam from Last 3 Months or Most Recently Relevant to Health Maintenance Results * (ABNORMAL) Creatinine with Estimated GFR (10/29/2023 8:41 AM POOLING OPERATOR) Creatinine 1.17(H) 0.59 - 1.04 mg/dL 10/29/2023 9:33 AM POOLING OPERATOR DTL Estimated GFR (eGFR) 56(L) >=60 mL/min/BSA 10/29/2023 9:33 AM POOLING OPERATOR DTL Comment: Estimated GFR calculated using the 2020 CKD_EPI creatinine equation. Blood (Blood, Venous) 10/29/2023 8:41 AM POOLING OPERATOR 10/29/2023 9:11 AM POOLING OPERATOR Erasto Bear M.D. LAB BLOOD ADD-ON [facility] [address] [place] [address], [place] [facility] [address] [place] [address] * (ABNORMAL) Hemoglobin A1c (04/23/2023 3:58 PM CDT) Hemoglobin A1c, B 6.2(H) 4.0 - 5.6 % 04/23/2023 4:42 PM CDT DTL Comment: Hemoglobin A1c values of 5.7-6.4 percent indicate an increased risk for developing diabetes mellitus. In diabetic patients, HbA1c goals should be discussed with healthcare provider. Blood (Blood, Venous) 04/23/2023 3:58 PM CDT 04/23/2023 4:12 PM CDT Shawna March APRNNChristine, M.S.N. LAB BLO OD ADD-ON [facility] [address] [place] [address], [facility] [address] [place] [address] * (ABNORMAL) Basic Metabolic Panel (04/23/2023 3:58 PM CDT) Potassium, S 4.2 3.6 - 5.2 mmol/L 04/23/2023 4:45 PM CDT DTL Sodium, S 139 135 - 145 mmol/L 04/23/2023 4:45 PM CDT DTL Chloride, S 100 98 - 107 mmol/L 04/23/2023 4:45 PM CDT DTL Bicarbonate, S 29 22 - 29 mmol/L 04/23/2023 4:45 PM CDT DTL Anion Gap 10 7 - 15 04/23/2023 4:45 PM CDT DTL BUN (Blood Urea Nitrogen), S 15 6 - 21 mg/dL 04/23/2023 4:45 PM CDT DTL Creatinine 1.05(H) 0.59 - 1.04 mg/dL 04/23/2023 4:45 PM CDT DTL Estimated GFR (eGFR) 64 >=60 mL/min/BSA 04/23/2023 4:45 PM CDT DTL Comment: Estimated GFR calculated using the 2020 CKD_EPI creatinine equation. Calcium, Total, S 9.4 8.6 - 10.0 mg/dL 04/23/2023 4:45 PM CDT DTL Glucose, S 90 70 - 140 mg/dL 04/23/2023 4:45 PM CDT DTL Blood (Blood, Venous) 04/23/2023 3:58 PM CDT 04/23/2023 4:29 PM CDT Jennifer Herrera APRN C.N.P., M.S.N. LAB BLO OD ADD-ON [facility] [address] [place] [address], [place] DTL [facility] [address] [place] [address] from Last 3 Months or Most Recently Relevant to Health Maintenance Care Teams Soccer Ball Assembler Relationship Specialty Start Date End Date Elsewhere, Pcp PCP - General Emergency Medicine 03/14/23
--- OUTSIDE RECORDS SUMMARY | 2024-05-30 13:04 | XMS_ITS | Encounter Summary ---
Author Organization [facility] Address [address] [place] [address] Care Team Providers Care Erecting Crane Operator Name Role Phone Elsewhere, Pcp Primary Care Provider Unavailabl e Reason for Visit * Appointment Request (Routine) - Closed Specialty Diagnoses / Procedures Referred By Contchandrika t Referred To Contact Nephrology and Hypertension Referral ID Status Reason Start Date Expiration Date Visits Re quested Visits Authorized [id number] Closed 01/24/2024 01/23/2025 1 1 Encounter Details Date Type Department Care Team (Latest Contact Info) Description 03/05/2024 11:00 AM CDT External Outreach Division of Nephrology and Hypertension in [place], [place] [address] [place] [address] Edgar Cordon M.D., Ph.D. [address] [place] [phone] Hypertension Essential Primary (Primary Dx); Proteinuria Social History Tobacco Use Types Packs/Day Years [...] Friends and Family Patient declined 10/17/2019 Attends [employer] 1 to 4 times per year [...] care, and heating? Not very hard 03/10/2023 [facility] of Occupat ional Health - Occupational Stress [...] your living situation today? I have a [facility] place to live 03/10/2023 Education Answer Date Recorded What is the highest level of school you have completed or the highest degree you have received? Some college, no degree 10/17/2019 Sex and Gender Information Value Date Recorded Sex Assigned at Female 03/10/2023 7:28 PM CDT Gender Identity Female 10/28/2019 8:20 PM DIRECTOR OF ASSESSMENT Sexual Orientation Straight 10/28/2019 8: 20 PM DIRECTOR OF ASSESSMENT documented as of this encounter Progress Notes * Edgar Cordon M.D., Ph.D. - 03/05/2024 11:00 AM CDT PROGRESS NOTE SUBJECTIVE CHIEF COMPLAINT / REASON FOR VISIT Follow up resistant hypertension and proteinuria [facility] Outreach Visit Location: [facility] HISTORY OF PRESENT ILLNESS Pinky Land is a 53 y.o. female who is seen for follow up. Patient has history of difficult to control blood pressure and nephrotic range proteinuria. She has been started on Wegovy 2 months ago. She has lost 20 lbs since starting Wegovy, her dose was increased about 3 weeks ago. She has noticed borderline low blood pressure and held the use of valsartan/HCTZ and valsartan alone pills. She cut down her clonidine to 0.3 mg daily. She has not noticed any rebound hypertension with these changes in medications. OBJECTIVE BP 131/85 DIAGNOSTICS I have reviewed available labs in detail with patient. ASSESSMENT / PLAN Patient was initially referred for resistant hypertension. She had a significant improvement on BP after weight loss of 20 lbs. We will wean off clonidine by decreasing it to 0.2 mg daily for 3 days,down to 0.1 mg daily for 3 days, then 0.1 mg every other day x 2 days and then stop. If required, she can restart valsartan alone or valsartan plus HCTZ (patient has both prescriptions) according to her BP readings. I anticipate she will require either of these medications after clonidine is discontinued. She will continue to monitor her BP regularly at home. Her nephrotic range proteinuria has decreased significantly to 1 g (from 3+ g per day). GLP1 agonists are helpful to improve proteinuria plus her BP is better controlled. We will reassess in 3 monthswith a 24 hr urine collection. Return visit in 3 months, patient to contact us back sooner as needed to adjust her BP meds. Kennedi Li M.D., Ph.D. documented in this encounter Miscellaneous Notes * Addendum Note - Edgar Cordon M.D., Ph.D. - 03/05/2024 11:00 AM CDT Addended by: EDGAR CORDON on: 03/05/2024 02:00 PM Modules accepted: Orders documented in this encounter Plan of Treatment Not on file documented as of this encounter Visit Diagnoses Diagnosis Hypertension Essential Primary- Primary Proteinuria documented in this encounter Care Teams Erecting Crane Operator Relationship Specialty Start Date End Date Elsewhere, Pcp PCP - General Emergency Medicine 03/14/23 documented as of this encounter
--- OUTSIDE RECORDS SUMMARY | 2024-05-30 13:04 | XMS_ITS | Encounter Summary ---
Author Organization [facility] Address [address] [place] [address] Care Team Providers Care Command And Control Officer Name Role Phone Elsewhere, Pcp Primary Care Provider Unavailabl e Reason for Visit * Reason Comments Med Refill Encounter Details Date Type Department Care Team (Late st Contact Info) Description 03/13/2024 Refill Division of Nephrology and Hypertension in [place], [place] [address] [place] [phone] Evelyn Cordon M.D., Ph.D. [address] [place] [address] Med Refill Social History Tobacco Use Types Packs/Day Years [...] Friends and Family Patient declined 10/17/2019 Attends [employer] 1 to 4 times per year [...] care, and heating? Not very hard 03/10/2023 [facility] of Occupat ional Health - [...] your living situation today? I have a [facility] place to live 03/10/2023 Education Answer Date Recorded What is the highest level of school you have completed or the highest degree you have received? Some college, no degree 10/17/2019 Sex and Gender Information Value Date Recorded Sex Assigned at Female 03/10/2023 7:28 PM CDT Gender Identity Female 10/28/2019 8:20 PM MOTORS AND GENERATORS INSPECTOR Sexual Orientation Straight 10/28/2019 8: 20 PM MOTORS AND GENERATORS INSPECTOR documented as of this encounter Plan of Treatment Not on file documented as of this encounter Visit Diagnoses Not on filedocumented in this encounter Care Teams Command And Control Officer Relationship Specialty Start Date End Date Elsewhere, Pcp PCP - General Emergency Medicine 03/14/23 documented as of this encounter
--- OUTSIDE RECORDS SUMMARY | 2024-05-30 13:04 | XMS_ITS | Referral Summary ---
Author Organization [facility] Address [address] [place] [id number] Care Team Providers Care Tax Map Technician Name Role Phone Elsewhere, Pcp Primary Care Provider Unavailabl e Source Comments Patient records contain information from all sites at [facility]. For routine questions regarding patient records, call [phone] during business hours, M-F 8:00 AM - 5:00 PM Central Time. Record requests for emergency care only can be directed to [phone] at any time.[facility] Encounters Date Type Department Care Team Description 05/29/2024 4:00 PM CDT External Outreach Division of Nephrology and Hypertension in [place], [place] [address] [place] [address] Evelyn Cordon M.D., Ph.D. Arrived 03/13/2024 Refill Division of Nephrology and Hypertension in [place], [place] [address] [place] [address] Evelyn Cordon M.D., Ph.D. Med Refill 03/05/2024 11:00 AM CDT External Outreach Division of Nephrology and Hypertension in [place], [place] [address] [place] [address] Evelyn Cordon M.D., Ph.D. Hypertension Essential Primary (Primary Dx); Proteinuria from Last 3 Months Allergies No known active allergies Medications Medication [...] oxyCODONE (ROXICODONE) 5 mg immediate release tabletIndications:Ac [place] Pain Take 1 tablet (5 mg total) [...] 08/21/2023 Assessment & Plan (08/21/2023 2:28 PM AUTO REPAIR SHOP MANAGER): Continue Provera Obesity Body Mass Index 30-39.9 Adult 08/21/2023 Assessment & Plan (08/21/2023 2:39 PM AUTO REPAIR SHOP MANAGER): Body mass index is 39.62 kg/m??. Hemangioma Site 04/04/2023 Lesion Spine Thoracic 12/25/2022 Assessment & Plan (08/21/2023 2:42 PM AUTO REPAIR SHOP MANAGER): She denies radicular symptoms and feels she [...] 06/15/2021 Assessment & Plan (08/21/2023 2:29 PM AUTO REPAIR SHOP MANAGER): Continue Celexa Liver Disease 11/15/2020 Overview (08/21/2023): [place] CT enhancing lesion in the inferior right lobe of the liver measuring 8.4 x 5.5 cm - 09/2019 Assessment & Plan (08/21/2023 2:36 PM AUTO REPAIR SHOP MANAGER): [place] CT enhancing lesion in the inferior right lobe of the liver measuring 8.4 x 5.5 cm - 09/2019 Thoracic Aortic Aneurysm Without Rupture Unspeci fied 11/15/2020 Overview (08/21/2023): aneurysmal enlargement of ascending aorta anterior arch measuring 4.1 cm in maximal diameter - 09/[address] [place] Assessment & Plan (08/21/2023 2:39 PM AUTO REPAIR SHOP MANAGER): aneurysmal enlargement of ascending aorta anterior arch measuring 4.1 cm in maximal diameter - 09/[address] [place] Dyslipidemia 11/10/2020 Assessment & Plan (08/21/2023 2:32 PM AUTO REPAIR SHOP MANAGER): Continue simvastatin Lymphadenopathy 10/30/2019 Diabetes Mellitus Type 2 Without Complication Assessment & Plan (08/21/2023 2:32 PM AUTO REPAIR SHOP MANAGER): Lab Results Component Value Date HGBA1C 6.2 (H) 04/23/2023 Checks blood sugar at home and notes it ranges between 85-120. Denies episodes of hypoglycemia. Treated with metformin once daily. She will hold 24 hours prior to procedure. Asthma Mild Persistent 07/10/2019 Assessment & Plan (08/21/2023 2:30 PM AUTO REPAIR SHOP MANAGER): Currently on Flovent and p.r.n. albuterol. Patient currently feels breathing is at baseline. Reports using albuterol 2-3 times per day. Last exacerbation occurred May 2023. Notes that breathing feels at baseline today. Patient will continue all inhalers perioperatively, Gastro-Esophageal Reflux Dis ease With Esophagitis Without Bleeding 07/10/2019 Assessment & Plan (08/21/2023 2:33 PM AUTO REPAIR SHOP MANAGER): Asymptomatic on Prilosec which she will continue perioperatively Hypertension Essential Primary 07/10/2019 Assessment & Plan (08/21/2023 2:34 PM AUTO REPAIR SHOP MANAGER): Blood pressure 150/90. Treated with clonidine, diltiazem, and valsartan hydrochlorothiazide. She will continue the clonidine and diltiazem preoperatively. Hold valsartan/hydrochlorothiazide 24 hours prior to procedure. Resolved Problems Problem Noted Date Diagnosed Date Resolved Date Diabetes Mellitus NOS 04/10/20232022 Immunizations Name Administration Dates Next Due Influenza, Unspecified 09/27/2021 PCV13 05/13/2020 PPSV23 06/10/2021 Tdap 05/13/2020 influenza vaccine quad (FLUZ ONE/FLUARIX) (6 months and older)(PF) 10/31/2022,08/19/2020,08/18/2019 Social History Tobacco Use Types Packs/Day Years Used Date Smoking Tobacco: Never Passive Smoke Exposure: Past Smokeless Tobacco: Never Tobacco Cessation:Counseling Given: Not Answered Passive Exposure Comments:Worked in [employer] for years Alcohol Use Standard Drinks/Week Comments [...] Friends and Family Patient declined 10/17/2019 Attends [employer] Services 1 to 4 times per year [...] care, and heating? Not very hard 03/10/2023 [facility] - Occup[facility] Stress [...] your living situation today? I have a [facility] to live 03/10/2023 Education Answer Date Recorded What is the highest level of school you have completed or the highest degree you have received? Some college, no degree 10/17/2019 Sex and Gender Information Value Date Recorded Sex Assigned at Female 03/10/2023 7:28 PM CDT Gender Identity Female 10/28/2019 8:20 PM AUTO REPAIR SHOP MANAGER Sexual Orientation Straight 10/28/2019 8: 20 PM AUTO REPAIR SHOP MANAGER Last Filed Vital Signs Vital Sign Reading Time Taken Comments Blood Pressure 134/73 08/22/2023 2:30 PM AUTO REPAIR SHOP MANAGER Pulse 70 08/22/2023 2:40 PM AUTO REPAIR SHOP MANAGER Temperature 36.7 ??C (98 ??F) 08/22/2023 12:06 PM AUTO REPAIR SHOP MANAGER Respiratory Rate 12 08/22/2023 2:41 PM AUTO REPAIR SHOP MANAGER Oxygen Saturation 95% 08/22/2023 2:40 PM AUTO REPAIR SHOP MANAGER Inhaled Oxygen Concentration - - Weight 114 kg (252 lb 6.4 oz) 10/29/2023 3:13 PM AUTO REPAIR SHOP MANAGER Height 165.1 cm (5' 5) 08/21/2023 2:55 PM AUTO REPAIR SHOP MANAGER Body Mass Index 42 08/21/2023 2:55 PM AUTO REPAIR SHOP MANAGER Plan of Treatment Not on file Medical Devices Implanted Type Area Gang Plank Workman Device Identifier Shelf Expiration Date Model / Serial / Lot Cmnt W/Mxr Kyp - [id number] Implanted:Qty: 1 on 08/22/2023 by Jasper Moreno M.D. at [facility] [employer] 07/14/2025 [id number] / / [id number] Procedures Procedure Name Priority Date/Time Associated Diagnosis Comments CREATININE WITH EGFR, S/P Routine 10/29/2023 8:41 AM AUTO REPAIR SHOP MANAGER Hemangioma Site HEMOGLOBIN A1C, B Routine 04/23/2023 3:5 8 PM CDT Diabetes Mellitus Type 2 Without Complication (HCC) BASIC METABOLIC PANEL, S/P Routine 04/23/2023 3:58 PM CDT Preanesthetic Medical Exam from Last 3 Months or Most Recently Relevant to Health Maintenance Results * (ABNORMAL) Creatinine with Estimated GFR (10/29/2023 8:41 AM AUTO REPAIR SHOP MANAGER) Creatinine 1.17(H) 0.59 - 1.04 mg/dL 10/29/2023 9:33 AM AUTO REPAIR SHOP MANAGER DTL Estimated GFR (eGFR) 56(L) >=60 mL/min/BSA 10/29/2023 9:33 AM AUTO REPAIR SHOP MANAGER DTL Comment: Estimated GFR calculated using the 2020 CKD_EPI creatinine equation. Blood (Blood, Venous) 10/29/2023 8:41 AM AUTO REPAIR SHOP MANAGER 10/29/2023 9:11 AM AUTO REPAIR SHOP MANAGER Erasto Bear M.D. LAB BLOOD ADD-ON [facility] [address] [place] [address], [facility] DTL [facility] [address] [place] [address] * (ABNORMAL) Hemoglobin A1c (04/23/2023 3:58 PM CDT) Hemoglobin A1c, B 6.2(H) 4.0 - 5.6 % 04/23/2023 4:42 PM CDT DTL Comment: Hemoglobin A1c values of 5.7-6.4 percent indicate an increased risk for developing diabetes mellitus. In diabetic patients, HbA1c goals should be discussed with healthcare provider. Blood (Blood, Venous) 04/23/2023 3:58 PM CDT 04/23/2023 4:12 PM CDT Evangelist March APRN.N.Oriana., M.S.N. LAB BLO OD ADD-ON [facility] [address] [place] [address], [facility] DTL [facility] [address] [place] [address] * (ABNORMAL) Basic Metabolic Panel (04/23/2023 3:58 [...] CDT 04/23/2023 4:29 PM CDT Jennifer Herrera APRN, C.N.P., M.S.N. LAB BLO OD ADD-ON [facility] [address] [place] [address], [place] [facility] [address] [place] [address] from Last 3 Months or Most Recently Relevant to Health Maintenance Care Teams Tax Map Technician Relationship Specialty Start Date End Date Elsewhere, Pcp PCP - General Emergency Medicine 03/14/23
--- OUTSIDE RECORDS SUMMARY | 2024-05-30 13:05 | XMS_ITS | Encounter Summary ---
Author Organization [facility] Address [address] [place] [address] Care Team Providers Care Lens Cutter Name Role Phone Elsewhere, Pcp Primary Care Provider Unavailabl e Encounter Details Date Type Department Care Team (Late st Contact Info) Description 02/08/2024 Orders Only Department of Radiation Oncology in [place], [place] [address] [place] [phone] Raven Alonzo, MPAS, P.A.-C. [address] [place] [phone] Social History Tobacco Use Types Packs/Day Years [...] Friends and Family Patient declined 10/17/2019 Attends [employer] Services 1 to 4 times per year [...] care, and heating? Not very hard 03/10/2023 [facility] - Occupational [...] your living situation today? I have a [facility] place to live 03/10/2023 Education Answer Date Recorded What is the highest level of school you have completed or the highest degree you have received? Some college, no degree 10/17/2019 Sex and Gender Information Value Date Recorded Sex Assigned at Female 03/10/2023 7:28 PM CDT Gender Identity Female 10/28/2019 8:20 PM FUNERAL LOCATION MANAGER Sexual Orientation Straight 10/28/2019 8: 20 PM FUNERAL LOCATION MANAGER documented as of this encounter Plan of Treatment Not on file documented as of this encounter Visit Diagnoses Not on filedocumented in this encounter Care Teams Lens Cutter Relationship Specialty Start Date End Date Elsewhere, Pcp PCP - General Emergency Medicine 03/14/23 documented as of this encounter
--- OUTSIDE RECORDS SUMMARY | 2024-05-30 13:05 | XMS_ITS | Clinical Summary ---
Author Organization [facility] Address [place], [place] [address] Care Team Providers Care Car Sales Consultant Name Role Phone Cori Rogers NP Primary Care Provider [phone] Allergies No known active allergies Medications Medication Sig Dispensed Refills Start Date End Date Status allopurinol (ZYLOPRIM) 100 mg tablet allopurinol 100 mg tablet Active atenolol (TENORMIN) 100 mg tablet atenolol 100 mg tablet Active cloNIDine HCl (CATAPRES) 0.2 mg tablet Take 0.2 mg by mouth. 08/15/2019 Active cloNIDine HCl (CATAPRES) 0.1 mg tablet clonidine HCl 0.1 mg tablet Active fluticasone furoate-vilantero l (BREO ELLIPTA) 100-25 mcg/dose inhaler Breo Ellipta 100 mcg-25 mcg/dose powder for inhalation Active fluticasone furoate-vilantero l (BREO ELLIPTA) 200mcg/25mcg inhaler Inhale 1 Puff by mouth. 09/01/2019 Active hepatitis B vaccine adult, PF, (ENGERIX-B, PF,) 20 mcg/mL syringe Engerix-B (PF) 20 mcg/mL intramuscular syringe Active iron,carbonyl-vit barragan C (VITRON-C) 65 mg iron- 125 mg Delayed-Release tablet Take 1 Tab by mouth. 08/15/2019 Active measles, mumps & rubella vaccine (M-M-R II, PF,) 1,000-12,500 TCID50/0.5 mL injection M-M-R II (PF) 1,000-12,500 TCID50/0.5 mL subcutaneous solution Active metFORMIN (GLUCOPHAGE) 500 mg tablet metformin 500 mg tablet Active NIFEdipine (PROCARDIA XL) 60 mg Extended-Release tablet nifedipine ER 60 mg tablet,extended release 24 hr Active NIFEdipine (ADALAT CC) 90 mg Extended-Release tablet Take 90 mg by mouth. 08/18/2019 Active omeprazole (PRILOSEC) 40 mg Delayed-Release capsule omeprazole 40 mg capsule,delayed release 08/18/2019 Active simvastatin (ZOCOR) 20 mg tablet simvastatin 20 mg tablet Active valsartan-hydroch lorothiazide (DIOVAN HCT) 160-25 mg per tablet Take 1 Tab by mouth. Active cyclobenzaprine (FLEXERIL) 10 mg tabletIndications :Cervical radiculopathy, acute Take 1 tablet by mouth 3 times daily if needed for Muscle Spasm. 15 tablet 09/20/2019 Active oxyCODONE (ROXICODONE) 5 mg immediate release tabletIndications :Pain, dental Take 1 Tablet (5 mg) by mouth every 6 hours if needed for Pain. 6 Tablet 04/25/2024 Active amoxicillin-clavu lanate 875-125 mg tablet (AUGMENTIN)Indica tions:Pain, dental Take 1 Tablet by mouth two times daily with meals for 5 days. 10 Tablet 04/25/2024 04/30/2024 Active Problems Problem Noted Date Diagnosed Date Diabetes 09/20/2019 Chronic pain of right knee 07/10/2019 Essential hypertension 07/10/2019 Gastroesophageal reflux disease with esophagitis 07/10/2019 Mild persistent asthma without complication 06/16 Prediabetes 07/10/2019 Encounters Date Type Department Care Team Description 04/25/2024 7:42 PM CDT - 04/25/2024 8:51 PM CDT Emergency [facility] [address] [place] [address] Toñito Goldman MD Pain, dental (Primary Dx) Discharge Disposition: Home Self Care 04/25/2024 Travel from Last 3 Months Immunizations Name Administration Dates Next Due Influenza, IIV4 08/18/2019 Social History Tobacco Use Types Packs/Day Years Used Date Smoking Tobacco: Never Social Connections Answer Date Recorded Frequency of Communication with Friends and Fami ly Not on file 01/27/2022 Sex and Gender Information Value Date Recorded Sex Assigned at Not on file Gender Identity Not on file Sexual Orientation Not on file Obstetrics History Last Filed Vital Signs Vital Sign Reading Time Taken Comments Blood Pressure 166/105 04/25/2024 8:31 PM CDT Pulse 82 04/25/2024 8:31 PM CDT Temperature 36.6 ??C (97.8 ??F) 04/25/2024 7:45 PM CD T Respiratory Rate 18 04/25/2024 7:45 PM CDT Oxygen Saturation 95% 04/25/2024 8:31 PM CDT Inhaled Oxygen Concentration - - Weight 110.3 kg (243 lb 3.2 oz) 04/25/2024 7:44 PM CDT Height 165.1 cm (5' 5) 04/25/2024 7:44 PM CDT Body Mass Index 40.47 04/25/2024 7:44 PM CDT Plan of Treatment Health Maintenance Due Date Last Done Comments Tdap 1981 Depression screening for age 12+ 1982 HIV for age 15-65 1985 BMI (ht and wt on same day) for age 18+ 1988 Hepatitis C screening for ag e 18-79 1988 Tetanus booster 1990 Pap test for age 21-65 1991 Colonoscopy through age 75 2015 Lipids for age 45-75 2015 Mammogram for age 45-75 2015 Zoster (shingles) series for age 50+ (1 of 2) 2020 COVID-19 vaccine series (3 - 2022- season) 2023 12/08/2020, 11/10/2020 Influenza for age 50-64 06/15/2024 08/18/2019 Pneumococcal series for age 6-64 Aged Out No longer eligible b ased on patient's age to complete this topic Procedures Procedure Name Priority Date/Time Associated Diagnosis Comments DENTAL BLOCK Routine 04/25/2024 9:51 PM CDT from Last 3 Months Results * DENTAL BLOCK (04/25/2024 9:51 PM CDT) Narrative Toñito Goldman MD - 04/25/2024 9:51 PM CDT Toñito Goldman MD ? 04/25/2024 ??9:52 PM DENTAL BLOCK Date/Time: 04/25/2024 9:51 PM Performed by: Toñito Goldman MD Authorized by: Toñito Goldman MD ?? Consent: ??Consent obtained: ??Verbal ??Consent given by: ??Patient ??Risks, benefits, and alternatives were discussed: yes ?? Indications: ??Indications: dental pain ?? Location: ??Block type: ??Middle superior alveolar ??Laterality: ??Right Procedure details: ??Syringe type: ??Luer lock syringe ??Needle gauge: ??27 G ??Anesthetic injected: ??Bupivacaine 0.25% WITH epi ??Injection procedure: ??Anatomic landmarks identified, introduced needle and negative aspiration for blood Post-procedure details: ??Outcome: ??Anesthesia achieved ??Procedure completion: ??Tolerated well, no immediate complications Toñito Goldman MD PROCEDURE ORD from Last 3 Months Care Teams Car Sales Consultant Relationship Specialty Start Date End Date Cori Rogers GYNAECOLOGICAL ONCOLOGIST [address] [place] [address] PCP - General Emergency Medicine 01/06/22
== END 2024-05-27 12:50 | disposition home or self-care (01) ==
LOC: NFLDREF 05-30 13:02
PROVIDERS: PCP Nurse Practitioner Family; Referring Provider Nurse Practitioner Family; Visit Provider Internal Medicine Nephrology
DX: R80.9 Proteinuria, unspecified (principal)
CPT/HCPCS: 80069; 81001; 82043; 82570; 84156; 87086

== ENCOUNTER 2024-08-29 11:42 | Outpatient (CLI) | payer OTHER, SELFPAY ==
--- OUTSIDE RECORDS SUMMARY | 2024-09-02 23:57 | XMS_ITS ---
Author Organization [facility] Address [address] [place] [address] Care Team Providers Care Senior Living Advisor Name Role Phone Unavailable Unavailable Unavailable Surgery Details Not on file Complications Check Surgery Details section. Procedure Estimated Blood Loss Check Surgery Details section. Procedure Findings Check Surgery Details section. Procedure Specimens Taken Check Surgery Details section.
--- OUTSIDE RECORDS SUMMARY | 2024-09-02 23:57 | XMS_ITS | Encounter Summary ---
Author Organization [facility] Address [address] [place] [address] Care Team Providers Care Insulation Professional Name Role Phone Elsewhere, Pcp Primary Care Provider Unavailabl e Reason for Visit * Appointment Request (Routine) - Closed Specialty Diagnoses / Procedures Referred By Contac t Referred To Contact Nephrology and Hypertension Referral ID Status Reason Start Date Expiration Date Visits Re quested Visits Authorized [id number] Closed 05/16/2024 05/16/2025 1 1 Encounter Details Date Type Department Care Team (Latest Contact Info) Description 05/29/2024 4:00 PM CDT External Outreach Division of Nephrology and Hypertension in [place], [place] [address] [place] [address] Evelyn Cordon M.D., Ph.D. [address] [place] [phone] Hypertension Essential Primary (Primary Dx); Proteinuria Social [...] Friends and Family Patient declined 10/17/2019 Attends [employer] 1 to 4 times per year [...] care, and heating? Not very hard 03/10/2023 [facility] of Occupat ional Health - Occupational [...] your living situation today? I have a [facility] place to live 03/10/2023 Education Answer Date Recorded What is the highest level of school you have completed or the highest degree you have received? Some college, no degree 10/17/2019 Comments No Sex and Gender Information Value Date Recorded Sex Assigned at Female 03/10/2023 7:28 PM CDT Legal Sex Female 4:29 PM HYDRAULIC AUTO JACK MECHANIC Gender Identity Female 10/28/2019 8:20 PM HYDRAULIC AUTO JACK MECHANIC Sexual Orientation Straight 10/28/2019 8: 20 PM HYDRAULIC AUTO JACK MECHANIC documented as of this encounter Progress Notes [...] Li M.D., Ph.D. CT CT Job ID: [id number] documented in this encounter Plan of Treatment Upcoming Encounters Date Type Department Care Team (Latest Contact Info) Description 11/03/2024 2:45 PM HYDRAULIC AUTO JACK MECHANIC Clinical Communication Virtual Review in [place], [place] [address] [place] [address] 11/04/2024 9:00 AM HYDRAULIC AUTO JACK MECHANIC Appointment Department of Radiology, [facility], in [address] [phone] Elina Moreau APRN, C.N.P., D.N.P. [address] [place] [phone] 11/04/2024 2:00 PM HYDRAULIC AUTO JACK MECHANIC Appointment Department of Radiation Oncology in [address] [phone] Erasto Bear M.D. [address] [place] [phone] documented as of this encounter Visit Diagnoses Diagnosis Hypertension Essential Primary- Primary Proteinuria documented in this encounter Care Teams Insulation Professional Relationship Specialty Start Date End Date Elsewhere, Pcp PCP - General Emergency Medicine 03/14/23 documented as of this encounter
--- OUTSIDE RECORDS SUMMARY | 2024-09-02 23:57 | XMS_ITS | Clinical Summary ---
Author Organization [employer] [facility] Address [place], [place] [address] Care Team Providers Care Boot And Shoe Repairman Name Role Phone Cori Rogers NP Primary Care Provider [phone] Allergies No known active allergies Medications Medication [...] age to complete this topic Care Teams Boot And Shoe Repairman Relationship Specialty Start Date End Date Cori Rogers NP [address] [place] [address] PCP - General Emergency Medicine 01/06/22
--- OUTSIDE RECORDS SUMMARY | 2024-09-02 23:57 | XMS_ITS | Encounter Summary ---
Author Organization [facility] Address [address] [place] [address] Care Team Providers Care Spinning Doffer Name Role Phone Elsewhere, Pcp Primary Care Provider Unavailabl e Reason for Visit * Appointment Request (Routine) - Closed Specialty Diagnoses / Procedures Referred By Contchandrika t Referred To Contact Nephrology and Hypertension Referral ID Status Reason Start Date Expiration Date Visits Re quested Visits Authorized [id number] Closed 08/15/2024 08/15/2025 1 1 Encounter Details Date Type Department Care Team (Latest Contact Info) Description 09/02/2024 2:30 PM HOME CARE ADMINISTRATOR External Outreach Division of Nephrology and Hypertension in [place], [place] [address] [place] [address] Evelyn Cordon M.D., Ph.D. [address] [place] [address] Hypertension Essential Primary (Primary Dx); Proteinuria; Chronic Kidney Disease Stage 2 Glomerular Filtration Rate 60 To 89 Social History Tobacco Use Types Packs/Day Years [...] Friends and Family Patient declined 10/17/2019 Attends [employer] 1 to 4 times per year [...] care, and heating? Not very hard 03/10/2023 [facility] of Occupat ional Health - Occupational Stress [...] PM CDT Legal Sex Female 4:29 PM HOME CARE ADMINISTRATOR Gender Identity Female 10/28/2019 8:20 PM HOME CARE ADMINISTRATOR Sexual Orientation Straight 10/28/2019 8: 20 PM HOME CARE ADMINISTRATOR documented as of this encounter Progress Notes * Evelyn Cordon M.D., Ph.D. - 09/02/2024 2:30 PM CST SUBJECTIVE CHIEF COMPLAINT/REASON FOR VISIT Followup hypertension. [place] Outreach Visit Location: [facility] HISTORY OF PRESENT ILLNESS Ms. Acosta is a 54 y.o. woman with hypertension. Initially was resistant hypertension. The patienthas been started on Wegovy, and she has been losing weight and decreasing the doses of her antihypertensive medications. She used to be on clonidine 0.3 mg twice per day. She tapered down the dose of clonidine, and she is completely off of it. Currently she is on hydrochlorothiazide with valsartan 25/160 mg daily plus diltiazem 120 mg BID. She has lost 20 more pounds since her last dose of Wegovy, she has noticed a plateau on her weight loss for the past month. Her blood pressure has been ranging in the 130s to 140s over 80s to 90s. Overall, she feels well and does not have any current concerns. ASSESSMENT / PLAN #1 Hypertension #2 Proteinuria The patient returns for followup. She had a significant improvement on her blood pressure after weight loss. She continues to use Wegovy. Her proteinuria has significantly improved. Initially in November 2023 she had 3.4 g of protein in urine. Two months later in January 2024 her proteinuria had decreased to the range of 1.1 g in 24 hours, and currently her protein to creatinine ratio is close to 0.5. She currently has proteinuria in the 400 mg range, likely associated with uncontrolled hypertension. I have recommended patient to addJardiance. Repeat labs in 2 weeks after initiation of Jardiance. I have discussed with patient the benefits of this medications and usual side effects. I have recommended patient to take Jardiance with food, and to keep good hydration while on this medication. It is okay to hold it if she presents d iarrhea, nausea or vomiting, or any other conditions in where she could not been well hydrated. Her electrolytes are acceptable. Her creatinine is slightly higher than her usual, currently at 1.3. Her baseline creatinine is between 0.9 and 1 mg/dL. I will order Cystatin C for comparison. I have encouraged her to continue a low salt diet and focus on her weight loss by increasing her exercise along with her diet. I will see her back in 3 months to continue to readjust her antihypertensive medications. All questions were answered. CARE ADMINISTRATOR documented in this encounter Plan of Treatment Upcoming Encounters Date Type Department Care Team (Latest Contact Info) Description 11/03/2024 2:45 PM HOME CARE ADMINISTRATOR Clinical Communication Virtual Review in [place], [place] [address] [place] [address] 11/04/2024 9:00 AM HOME CARE ADMINISTRATOR Appointment Department of Radiology, [facility], in [address] [phone] Elina Moreau APRN, C.N.P., D.N.P. [address] [place] [phone] 11/04/2024 2:00 PM HOME CARE ADMINISTRATOR Appointment Department of Radiation Oncology in [address] [phone] Erasto Bear M.D. [address] [place] [phone] documented as of this encounter Visit Diagnoses Diagnosis Hypertension Essential Primary- Primary Proteinuria Chronic Kidney Disease Stage 2 Glomerular Filtration Rate 60 To 89 documented in this encounter Care Teams Spinning Doffer Relationship Specialty Start Date End Date Elsewhere, Pcp PCP - General Emergency Medicine 03/14/23 documented as of this encounter
--- OUTSIDE RECORDS SUMMARY | 2024-09-02 23:57 | XMS_ITS | Clinical Summary ---
Author Organization [facility] Address [address] [place] [id number] Care Team Providers Care Record Press Operator Name Role Phone Elsewhere, Pcp Primary Care Provider Unavailabl e Source Comments Patient records contain information from all sites at [facility]. For routine questions regarding patient records, call [phone] during business hours, M-F 8:00 AM - 5:00 PM Central Time. Record requests for emergency care only can be directed to [phone] at any time.[facility] Allergies No known active allergies Medications valsartan-hydro [...] Acute Pain. 4 tablet 08/22/2023 3:16 PM HOOKMAN 08/22/2023 Active valsartan (DIOVAN) 160 mg tablet [...] and then stop 11 tablet 03/05/2024 Active empagliflozin (Jardiance) 10 mg tablet Take 1 tablet (10 mg total) by mouth daily before morning meal. 90 tablet 3 09/02/2024 5 Active Active Problems Problem Noted Date Diagnosed Date Abnormal Uterine And Vaginal Bleeding Unspecifie d 08/21/2023 Assessment & Plan (08/21/2023 2:28 PM HOOKMAN): Continue Provera Obesity Body Mass Index 30-39.9 Adult 08/21/2023 Assessment & Plan (08/21/2023 2:39 PM HOOKMAN): Body mass index is 39.62 kg/m . Hemangioma Site 04/04/2023 Lesion Spine Thoracic 12/25/2022 Assessment & Plan (08/21/2023 2:42 PM HOOKMAN): She denies radicular symptoms and feels she [...] 06/15/2021 Assessment & Plan (08/21/2023 2:29 PM HOOKMAN): Continue Celexa Liver Disease 11/15/2020 Overview (08/21/2023): [place] enhancing lesion in the inferior right lobe of the liver measuring 8.4 x 5.5 cm - 09/2019 Assessment & Plan (08/21/2023 2:36 PM HOOKMAN): [place] CT enhancing lesion in the inferior right lobe of the liver measuring 8.4 x 5.5 cm - 09/2019 Thoracic Aortic Aneurysm Without Rupture Unspeci fied 11/15/2020 Overview (08/21/2023): aneurysmal enlargement of ascending aorta anterior arch measuring 4.1 cm in maximal diameter - 09/[address] [place] Assessment & Plan (08/21/2023 2:39 PM HOOKMAN): aneurysmal enlargement of ascending aorta anterior arch measuring 4.1 cm in maximal diameter - 09/[address] [place] Dyslipidemia 11/10/2020 Assessment & Plan (08/21/2023 2:32 PM HOOKMAN): Continue simvastatin Lymphadenopathy 10/30/2019 Diabetes Mellitus Type 2 Without Complication Assessment & Plan (08/21/2023 2:32 PM HOOKMAN): Lab Results Component Value Date HGBA1C 6.2 (H) 04/23/2023 Checks blood sugar at home and notes it ranges between 85-120. Denies episodes of hypoglycemia. Treated with metformin once daily. She will hold 24 hours prior to procedure. Asthma Mild Persistent 07/10/2019 Assessment & Plan (08/21/2023 2:30 PM HOOKMAN): Currently on Flovent and p.r.n. albuterol. Patient currently feels breathing is at baseline. Reports using albuterol 2-3 times per day. Last exacerbation occurred May 2023. Notes that breathing feels at baseline today. Patient will continue all inhalers perioperatively, Gastro-Esophageal Reflux Dis ease With Esophagitis Without Bleeding 07/10/2019 Assessment & Plan (08/21/2023 2:33 PM HOOKMAN): Asymptomatic on Prilosec which she will continue perioperatively Hypertension Essential Primary 07/10/2019 Assessment & Plan (08/21/2023 2:34 PM HOOKMAN): Blood pressure 150/90. Treated with clonidine, diltiazem, and valsartan hydrochlorothiazide. She will continue the clonidine and diltiazem preoperatively. Hold valsartan/hydrochlorothiazide 24 hours prior to procedure. Resolved Problems Problem Noted Date Diagnosed Date Resolved Date Diabetes Mellitus NOS 04/10/20232022 Encounters Date Type Department Care Team Description 09/02/2024 2:30 PM HOOKMAN External Outreach Division of Nephrology and Hypertension in [place], [place] [address] [place] [phone] Evelyn Cordon M.D., Ph.D. Hypertension Essential Primary (Primary Dx); Proteinuria; Chronic Kidney Disease Stage 2 Glomerular Filtration Rate 60 To 89 from Last 3 Months Immunizations Name Administration [...] Given: Not Answered Passive Exposure Comments:Worked in [employer] for years Alcohol Use Standard Drinks/Week Comments [...] Friends and Family Patient declined 10/17/2019 Attends Muslim Services 1 to 4 times per year [...] care, and heating? Not very hard 03/10/2023 [facility] - Occupational [...] your living situation today? I have a [facility] place to live 03/10/2023 Education Answer Date Recorded What is the highest level of school you have completed or the highest degree you have received? Some college, no degree 10/17/2019 Comments No Sex and Gender Information Value Date Recorded Sex Assigned at Female 03/10/2023 7:28 PM CDT Legal Sex Female 4:29 PM HOOKMAN Gender Identity Female 10/28/2019 8:20 PM HOOKMAN Sexual Orientation Straight 10/28/2019 8: 20 PM HOOKMAN Last Filed Vital Signs Vital Sign Reading Time Taken Comments Blood Pressure 134/73 08/22/2023 2:30 PM HOOKMAN Pulse 70 08/22/2023 2:40 PM HOOKMAN Temperature 36.7 C (98 F) 08/22/2023 12:06 PM HOOKMAN Respiratory Rate 12 08/22/2023 2:41 PM HOOKMAN Oxygen Saturation 95% 08/22/2023 2:40 PM HOOKMAN Inhaled Oxygen Concentration - - Weight 114 kg (252 lb 6.4 oz) 10/29/2023 3:13 PM HOOKMAN Height 165.1 cm (5' 5) 08/21/2023 2:55 PM HOOKMAN Body Mass Index 42 08/21/2023 2:55 PM HOOKMAN Plan of Treatment Upcoming Encounters Date Type Department Care Team (Latest Contact Info) Description 11/03/2024 2:45 PM HOOKMAN Clinical Communication Virtual Review in [place], [place] [address] [place] [address] 11/04/2024 9:00 AM HOOKMAN Appointment Department of Radiology, [facility], in [place], [place] [address] [place] [phone] Elina Moreau APRN, C.N.P., D.N.P. [address] [place] [phone] 11/04/2024 2:00 PM HOOKMAN Appointment Department of Radiation Oncology in [place], [place] [address] [place] [phone] Erasto Bear M.D. [address] [place] [phone] Health Maintenance Due Date Last Done Comments CT Colonography 1970 Cologuard 1970 Colonoscopy 1970 Colorectal Cancer Surveillance 1970 Diabetic Office Visit with Foot Exam 1970 Dilated Eye Exam 1970 HIV Screening 1970 Hepatitis C Screening 1970 Urine Albumin 1970 Hepatitis B Vaccines (1 of 3 - 19+ 3-dose series) 1989 Zoster Vaccines (1 of 2) 1989 Abdominal Ultrasound 08/28/2021 02/25/2021 Mammogram 01/18/2022 01/18/2021, 04/0 03/2021, 08/11/2019 Cervical/Vaginal Cancer Screening 08/14/2022 08/14/2019 Depression Screening (Annual PHQ-2) 10/15/2023 Hemoglobin A1C 10/24/2023 04/23/2023, 09/0 10/2020, 11/15/2020, Additional history exists Office Visit for Blood Pressure Check / Re-check 11/21/2023 08/21/2023 Creatinine Level (Kidney Function Test) 02/06/2025 02/07/2024, 10/29/2023, 04/23/2023, Additional history exists Potassium Level 02/06/2025 02/07/2024, 04/14, 02/04/2021, Additional history exists Sodium Level 02/06/2025 02/07/2024, 07, 02/04/2021, Additional history exists Lipid (Cholesterol) Screening 11/15/2025 11/15/2020 Pneumococcal vaccine (0-64 years) (3 of 3 - PPSV23 or PCV20) 06/10/2026 06/10/2021, 05/13/2020 DTaP,Tdap,and Td Vaccines (3 - Td or Tdap) 12/24/2033 12/25/2023, 05/13/2020 COVID-19 Vaccine Completed 08/29/2024, , 11/10/2020 Influenza Vaccine Completed 08/29/2024, , 09/27/2021, Additional history exists HPV Vaccines Aged Out No longer eligi ble based on patient's age to complete this topic IPV Vaccines Aged Out No longer eligi ble based on patient's age to complete this topic Medical Devices Implanted Type Area Mail Order Sorter Device Identifier Shelf Expiration Date Model / Serial / Lot Cmnt W/Mxr Kyp - [id number] Implanted:Qty: 1 on 08/22/2023 by Jasper Moreno M.D. at [facility] [employer] 07/14/2025 [id number] / / [id number] Procedures Procedure Name Priority Date/Time Associated Diagnosis Comments CREATININE WITH EGFR, S/P Routine 10/29/2023 8:41 AM HOOKMAN Hemangioma Site HEMOGLOBIN A1C, B Routine 04/23/2023 3:5 8 PM CDT Diabetes Mellitus Type 2 Without Complication (HCC) BASIC METABOLIC PANEL, S/P Routine 04/23/2023 3:58 PM CDT Preanesthetic Medical Exam from Last 3 Months or Most Recently Relevant to Health Maintenance Results * (ABNORMAL) Creatinine with Estimated GFR (10/29/2023 8:41 AM HOOKMAN) Creatinine 1.17(H) 0.59 - 1.04 mg/dL 10/29/2023 9:33 AM HOOKMAN DTL Estimated GFR (eGFR) 56(L) >=60 mL/min/BSA 10/29/2023 9:33 AM HOOKMAN DTL Comment: Estimated GFR calculated using the 2020 CKD_EPI creatinine equation. Blood (Blood, Venous) 10/29/2023 8:41 AM HOOKMAN 10/29/2023 9:11 AM HOOKMAN Erasto eBar M.D. LAB BLOOD ADD-ON Final Result Performing Organization Address [facility] de Phone Number [facility] [address] [place] [address], [facility] [address] [place] [address] * (ABNORMAL) Hemoglobin A1c (04/23/2023 3:58 PM CDT) Hemoglobin A1c, B 6.2(H) 4.0 - 5.6 % 04/23/2023 4:42 PM CDT DTL Comment: Hemoglobin A1c values of 5.7-6.4 percent indicate an increased risk for developing diabetes mellitus. In diabetic patients, HbA1c goals should be discussed with healthcare provider. Blood (Blood, Venous) 04/23/2023 3:58 PM CDT 04/23/2023 4:12 PM CDT Jennifer Herrera APRN C.N.P., M.S.N. LAB BLOOD ADD-O N Final Result Performing Organization Address [facility] de Phone Number [facility] [address] [place] [address], [facility] [address] [place] [address] * (ABNORMAL) Basic Metabolic Panel (04/23/2023 3:58 [...] M.S.N. LAB BLOOD ADD-O N Final Result [facility] [address] [place] [address], [place] DTL [facility] [address] [place] [address] from Last 3 Months or Most Recently Relevant to Health Maintenance Insurance [facility] Care Teams Record Press Operator Relationship Specialty Start Date End Date Elsewhere, Pcp PCP - General Emergency Medicine 03/14/23
== END 2024-08-29 11:43 | disposition home or self-care (01) ==
LOC: NFLDREF 09-02 23:55
PROVIDERS: PCP Nurse Practitioner Family; Referring Provider Nurse Practitioner Family; Visit Provider Internal Medicine Nephrology
DX: R80.9 Proteinuria, unspecified (principal); I10 Essential (primary) hypertension
CPT/HCPCS: 80069; 81001; 82043; 82570; 85027; 87086

== ENCOUNTER 2024-09-01 13:46 | Outpatient (CLI) | payer OTHER, SELFPAY ==
--- OUTSIDE RECORDS SUMMARY | 2024-09-01 13:49 | XMS_ITS ---
Author Organization [facility] Address [address] [place] [address] Care Team Providers Care Material Handler 2Nd Shift Name Role Phone Unavailable Unavailable Unavailable Surgery Details Not on file Complications Check Surgery Details section. Procedure Estimated Blood Loss Check Surgery Details section. Procedure Findings Check Surgery Details section. Procedure Specimens Taken Check Surgery Details section.
--- OUTSIDE RECORDS SUMMARY | 2024-09-01 13:49 | XMS_ITS | Referral Summary ---
Author Organization [facility] Address [address] [place] [address] Care Team Providers Care Backend Java Developer Name Role Phone Elsewhere, Pcp Primary Care Provider Unavailabl e Source Comments Patient records contain information from all sites at [facility]. For routine questions regarding patient records, call [phone] during business hours, M-F 8:00 AM - 5:00 PM Central Time. Record requests for emergency care only can be directed to [phone] at any time.[facility] Allergies No known active allergies Medications valsartan-hydro CHLOROthiazide (DIOVAN-HCT) 160-25 mg per tablet Take 1 [...] 2 (two) times a day. 02/26/2023 Active medroxyPROGESTE Donavan (PROVERA) 10 mg tablet Take 10 mg [...] Active oxyCODONE (ROXICODONE) 5 mg immediate release tabletIndicatio ns:Acute Pain Take 1 tablet (5 mg total) by mouth every 6 (six) hours as needed for pain Indication: Acute Pain. 4 tablet 08/22/2023 3:16 PM NUTRIENT MANAGEMENT SPECIALIST 08/22/2023 Active valsartan (DIOVAN) 160 mg tablet Take 1 tablet (160 mg total) by mouth daily. 90 tablet 3 01/01/2024 5 Active spironolactone (ALDACTONE) 25 mg tablet Take 1 tablet (25 mg total) by mouth daily. 90 tablet 3 01/23/2024 5 Active cloNIDine (CATAPRES) 0.1 mg tablet Take 2 tablets x 3 days, 1 tablet x 3 days, 1 tablet every other day x 2 days and then stop 11 tablet 03/05/2024 Active Active Problems Problem Noted Date Diagnosed Date Abnormal Uterine And Vaginal Bleeding Unspecifie d 08/21/2023 Assessment & Plan (08/21/2023 2:28 PM NUTRIENT MANAGEMENT SPECIALIST): Continue Provera Obesity Body Mass Index 30-39.9 Adult 08/21/2023 Assessment & Plan (08/21/2023 2:39 PM NUTRIENT MANAGEMENT SPECIALIST): Body mass index is 39.62 kg/m . Hemangioma Site 04/04/2023 Lesion Spine Thoracic 12/25/2022 Assessment & Plan (08/21/2023 2:42 PM NUTRIENT MANAGEMENT SPECIALIST): She denies radicular symptoms and feels she [...] 06/15/2021 Assessment & Plan (08/21/2023 2:29 PM NUTRIENT MANAGEMENT SPECIALIST): Continue Celexa Liver Disease 11/15/2020 Overview (08/21/2023): [facility] CT enhancing lesion in the inferior right lobe of the liver measuring 8.4 x 5.5 cm - 09/2019 Assessment & Plan (08/21/2023 2:36 PM NUTRIENT MANAGEMENT SPECIALIST): [facility] CT enhancing lesion in the inferior right lobe of the liver measuring 8.4 x 5.5 cm - 09/2019 Thoracic Aortic Aneurysm Without Rupture Unspeci fied 11/15/2020 Overview (08/21/2023): aneurysmal enlargement of ascending aorta anterior arch measuring 4.1 cm in maximal diameter - 09/[address] [facility] Assessment & Plan (08/21/2023 2:39 PM NUTRIENT MANAGEMENT SPECIALIST): aneurysmal enlargement of ascending aorta anterior arch measuring 4.1 cm in maximal diameter - 09/[address] [facility] Dyslipidemia 11/10/2020 Assessment & Plan (08/21/2023 2:32 PM NUTRIENT MANAGEMENT SPECIALIST): Continue simvastatin Lymphadenopathy 10/30/2019 Diabetes Mellitus Type 2 Without Complication Assessment & Plan (08/21/2023 2:32 PM NUTRIENT MANAGEMENT SPECIALIST): Lab Results Component Value Date HGBA1C 6.2 (H) 04/23/2023 Checks blood sugar at home and notes it ranges between 85-120. Denies episodes of hypoglycemia. Treated with metformin once daily. She will hold 24 hours prior to procedure. Asthma Mild Persistent 07/10/2019 Assessment & Plan (08/21/2023 2:30 PM NUTRIENT MANAGEMENT SPECIALIST): Currently on Flovent and p.r.n. albuterol. Patient currently feels breathing is at baseline. Reports using albuterol 2-3 times per day. Last exacerbation occurred May 2023. Notes that breathing feels at baseline today. Patient will continue all inhalers perioperatively, Gastro-Esophageal Reflux Dis ease With Esophagitis Without Bleeding 07/10/2019 Assessment & Plan (08/21/2023 2:33 PM NUTRIENT MANAGEMENT SPECIALIST): Asymptomatic on Prilosec which she will continue perioperatively Hypertension Essential Primary 07/10/2019 Assessment & Plan (08/21/2023 2:34 PM NUTRIENT MANAGEMENT SPECIALIST): Blood pressure 150/90. Treated with clonidine, diltiazem, [...] Given: Not Answered Passive Exposure Comments:Worked in [employer] for years Alcohol Use Standard Drinks/Week Comments [...] Friends and Family Patient declined 10/17/2019 Attends [employer] 1 to 4 times per year [...] care, and heating? Not very hard 03/10/2023 [facility] - Occupational Stress [...] living? No 03/10/2023 Nutrition Answer Date Recorded On average, how many serving s of [...] your living situation today? I have a [facility] place to live 03/10/2023 Education Answer Date Recorded What is the highest level of school you have completed or the highest degree you have received? Some college, no degree 10/17/2019 Comments No Sex and Gender Information Value Date Recorded Sex Assigned at Female 03/10/2023 7:28 PM CDT Legal Sex Female 4:29 PM NUTRIENT MANAGEMENT SPECIALIST Gender Identity Female 10/28/2019 8:20 PM NUTRIENT MANAGEMENT SPECIALIST Sexual Orientation Straight 10/28/2019 8: 20 PM NUTRIENT MANAGEMENT SPECIALIST Last Filed Vital Signs Vital Sign Reading Time Taken Comments Blood Pressure 134/73 08/22/2023 2:30 PM NUTRIENT MANAGEMENT SPECIALIST Pulse 70 08/22/2023 2:40 PM NUTRIENT MANAGEMENT SPECIALIST Temperature 36.7 C (98 F) 08/22/2023 12:06 PM NUTRIENT MANAGEMENT SPECIALIST Respiratory Rate 12 08/22/2023 2:41 PM NUTRIENT MANAGEMENT SPECIALIST Oxygen Saturation 95% 08/22/2023 2:40 PM NUTRIENT MANAGEMENT SPECIALIST Inhaled Oxygen Concentration - - Weight 114 kg (252 lb 6.4 oz) 10/29/2023 3:13 PM NUTRIENT MANAGEMENT SPECIALIST Height 165.1 cm (5' 5) 08/21/2023 2:55 PM NUTRIENT MANAGEMENT SPECIALIST Body Mass Index 42 08/21/2023 2:55 PM NUTRIENT MANAGEMENT SPECIALIST Plan of Treatment Upcoming Encounters Date Type Department Care Team (Latest Contact Info) Description 11/03/2024 2:45 PM NUTRIENT MANAGEMENT SPECIALIST Clinical Communication Virtual Review in [place], [place] [address] [place] [address] 11/04/2024 9:00 AM NUTRIENT MANAGEMENT SPECIALIST Appointment Department of Radiology, [facility], in [place], [place] [address] [place] [phone] Elina Moreau APRN, C.N.P., D.N.P. [address] [place] [phone] 11/04/2024 2:00 PM NUTRIENT MANAGEMENT SPECIALIST Appointment Department of Radiation Oncology in [place], [place] [address] [place] [phone] Erasto Bear M.D. [address] [place] [phone] Medical Devices Implanted Type Area Upholstery Restorer Device Identifier Shelf Expiration Date Model / Serial / Lot Cmnt W/Mxr Kyp - [id number] Implanted:Qty: 1 on 08/22/2023 by Jasper Moreno M.D. at [facility] [employer] 07/14/2025 [id number] / / [id number] Procedures Procedure Name Priority Date/Time Associated Diagnosis Comments CREATININE WITH EGFR, S/P Routine 10/29/2023 8:41 AM NUTRIENT MANAGEMENT SPECIALIST Hemangioma Site HEMOGLOBIN A1C, B Routine 04/23/2023 3:5 8 PM CDT Diabetes Mellitus Type 2 Without Complication (HCC) BASIC METABOLIC PANEL, S/P Routine 04/23/2023 3:58 PM CDT Preanesthetic Medical Exam from Last 3 Months or Most Recently Relevant to Health Maintenance Results * (ABNORMAL) Creatinine with Estimated GFR (10/29/2023 8:41 AM NUTRIENT MANAGEMENT SPECIALIST) Creatinine 1.17(H) 0.59 - 1.04 mg/dL 10/29/2023 9:33 AM NUTRIENT MANAGEMENT SPECIALIST DTL Estimated GFR (eGFR) 56(L) >=60 mL/min/BSA 10/29/2023 9:33 AM NUTRIENT MANAGEMENT SPECIALIST DTL Comment: Estimated GFR calculated using the 2020 CKD_EPI creatinine equation. Blood (Blood, Venous) 10/29/2023 8:41 AM NUTRIENT MANAGEMENT SPECIALIST 10/29/2023 9:11 AM NUTRIENT MANAGEMENT SPECIALIST Erasto Bear M.D. LAB BLOOD ADD-ON Final Result [facility] [address] [place] [address], [facility] [address] [place] [address] * (ABNORMAL) Hemoglobin A1c (04/23/2023 3:58 PM CDT) Hemoglobin A1c, B 6.2(H) 4.0 - 5.6 % 04/23/2023 4:42 PM CDT DTL Comment: Hemoglobin A1c values of 5.7-6.4 percent indicate an increased risk for developing diabetes mellitus. In diabetic patients, HbA1c goals should be discussed with healthcare provider. Blood (Blood, Venous) 04/23/2023 3:58 PM CDT 04/23/2023 4:12 PM CDT Jennifer Herrera APRN, C.N.P., M.S.N. LAB BLOOD ADD-O N Final Result [facility] [address] [place] [address], [facility] [address] [place] [address] * (ABNORMAL) Basic Metabolic Panel (04/23/2023 3:58 PM CDT) Pathologist [facility] Potassium, S 4.2 3.6 - 5.2 mmol/L [...] CDT Jennifer Herrera APRN, C.N.P., M.S.N. LAB BLOOD ADD-O N Final Result [facility] [address] [place] [address], [facility] DTL [facility] [address] [place] [address] from Last 3 Months or Most Recently Relevant to Health Maintenance Insurance [facility] Address: [address] [place] [address] [place] [address] [place] [address] Care Teams Backend Java Developer Relationship Specialty Start Date End Date Elsewhere, Pcp PCP - General Emergency Medicine 03/14/23
--- OUTSIDE RECORDS SUMMARY | 2024-09-01 13:49 | XMS_ITS | Clinical Summary ---
Author Organization [facility] Address [place], [place] [address] Care Team Providers Care Retail Delivery Driver Name Role Phone Cori Rogers NP Primary Care Provider [phone] Allergies No known active allergies Medications Medication Sig Dispensed Refills Start Date End Date Status allopurinol (ZYLOPRIM) 100 mg tablet allopurinol 100 mg tablet Active atenolol (TENORMIN) 100 mg tablet atenolol 100 mg tablet Active cloNIDine HCl (CATAPRES) 0.2 mg tablet Take 0.2 mg by mouth. 08/15/2019 Active cloNIDine HCl (CATAPRES) 0.1 mg tablet clonidine HCl 0.1 mg tablet Active fluticasone furoate-vilanterol (BREO ELLIPTA) 100-25 mcg/dose inhaler Breo Ellipta 100 mcg-25 mcg/dose powder for inhalation Active fluticasone furoate-vilanterol (BREO ELLIPTA) 200mcg/25mcg inhaler Inhale 1 Puff by mouth. 09/01/2019 Active hepatitis B vaccine adult, PF, (ENGERIX-B, PF,) 20 mcg/mL syringe Engerix-B (PF) 20 mcg/mL intramuscular syringe Active iron,carbonyl-izabella min C (VITRON-C) 65 mg iron- 125 mg Delayed-Release tablet Take 1 Tab by mouth. 08/15/2019 Acti ve measles, mumps & rubella vaccine (M-M-R II, PF,) 1,000-12,500 TCID50/0.5 mL injection M-M-R II (PF) 1,000-12,500 TCID50/0.5 mL subcutaneous solution Active metFORMIN (GLUCOPHAGE) 500 mg tablet metformin 500 mg tablet Active NIFEdipine (PROCARDIA XL) 60 mg Extended-Release tablet nifedipine ER 60 mg tablet,extended release 24 hr Active NIFEdipine (ADALAT CC) 90 mg Extended-Release tablet Take 90 mg by mouth. 08/18/2019 Acti ve omeprazole (PRILOSEC) 40 mg Delayed-Release capsule omeprazole 40 mg capsule,delayed release 08/18/2019 Active simvastatin (ZOCOR) 20 mg tablet simvastatin 20 mg tablet Active valsartan-hydrochl orothiazide (DIOVAN HCT) 160-25 mg per tablet Take 1 Tab by mouth. Acti ve cyclobenzaprine (FLEXERIL) 10 mg tabletIndications: Cervical radiculopathy, acute Take 1 tablet by mouth 3 times daily if needed for Muscle Spasm. 15 tablet 09/20/2019 Active oxyCODONE (ROXICODONE) 5 mg immediate release tabletIndications: Pain, dental Take 1 Tablet (5 mg) by mouth every 6 hours if needed for Pain. 6 Tablet 04/25/2024 Active Active Problems Problem Noted Date Diagnosed Date Diabetes 09/20/2019 Chronic pain of right knee 07/10/2019 Essential hypertension 07/10/2019 Gastroesophageal reflux disease with esophagitis 07/10/2019 Mild persistent asthma without complication 06/16 Prediabetes 07/10/2019 Immunizations Name Administration Dates Next Due Influenza, [...] 82 04/25/2024 8:31 PM CDT Temperature 36.6 C (97.8 F) 04/25/2024 7:45 PM CDT Respiratory Rate 18 04/25/2024 7:45 PM CDT [...] (1 of 2) 2020 COVID-19 vaccine series ( season) 2024 12/08/2020, 11/10/2020 Influenza for age 50-64 06/15/2024 08/18/2019 Pneumococcal series for age 6-64 Aged Out No longer eligible b ased on patient's age to complete this topic Care Teams Retail Delivery Driver Relationship Specialty Start Date End Date Cori Rogers NP [address] [place] [address] PCP - General Emergency Medicine 01/06/22
--- OUTSIDE RECORDS SUMMARY | 2024-09-01 13:49 | XMS_ITS | Encounter Summary ---
Author Organization [facility] Address [address] [place] [address] Care Team Providers Care Auto Club Travel Counselor Name Role Phone Elsewhere, Pcp Primary Care Provider Unavailabl e Reason for Visit * Appointment Request (Routine) - Closed Specialty Diagnoses / Procedures Referred By Contac t Referred To Contact Nephrology and Hypertension Referral ID Status Reason Start Date Expiration Date Visits Re quested Visits Authorized [id number] Closed 05/16/2024 05/16/2025 1 1 Encounter Details Date Type Department Care Team (Latest Contact Info) Description 05/29/2024 4:00 PM CDT External Outreach Division of Nephrology and Hypertension in [place], [place] [address] [place] [phone] Evelyn Cordon M.D., Ph.D. [address] [place] [address] Hypertension Essential Primary (Primary Dx); Proteinuria Social [...] care, and heating? Not very hard 03/10/2023 [facility] - [...] your living situation today? I have a [facility] place to live 03/10/2023 Education Answer Date Recorded What is the highest level of school you have completed or the highest degree you have received? Some college, no degree 10/17/2019 Comments No Sex and Gender Information Value Date Recorded Sex Assigned at Female 03/10/2023 7:28 PM CDT Legal Sex Female 4:29 PM V BELT BUILDER Gender Identity Female 10/28/2019 8:20 PM V BELT BUILDER Sexual Orientation Straight 10/28/2019 8: 20 PM V BELT BUILDER documented as of this encounter Progress Notes * Evelyn Cordon M.D., Ph.D. - 05/29/2024 4:00 PM CDT SUBJECTIVE CHIEF COMPLAINT/REASON FOR VISIT Followup. HISTORY OF PRESENT ILLNESS Ms. Acosta is a 53-year-old woman with hypertension. Initially was resistant hypertension. The patient has been started on Wegovy, and she has been losing weight and decreasing the doses of her antihypertensive medications. She used to be on clonidine 0.3 mg twice per day. She tapered down the dose of clonidine, and she is completely off of it. Currently she is on hydrochlorothiazide with valsartan 25/160 mg daily plus diltiazem 240 mg in the morning and 120 mg in the evening. She skips some of her morning medications due to normal low blood pressure. She usually takes her evening medications due to elevated blood pressure in the evening. She has lost 20 more pounds since her last dose of W egovy. Overall, she feels well and does not have any current concerns. ASSESSMENT / PLAN #1 Hypertension #2 Proteinuria The patient returns for followup. She had a significant improvement on her blood pressure after weight loss. She continues to use Wegovy and lose weight. She is off clonidine. I have recommended patient to decrease her dose of diltiazem to 120 mg twice a day. If she notices she no longer needs diltiazem morning dose as she continues to lose weight, it is okay to take it only at nighttime. The lorelei ent should not skip her valsartan with hydrochlorothiazide medication unless her blood pressure is lower than 100/60. Her electrolytes are acceptable. Her creatinine is slightly higher than her usual, currently at 1.2. Her baseline creatinine is between 0.9 and 1 mg/dL. Her proteinuria has significantly improved. Initially in November 2023 she had 3.4 g of protein in urine. Two months later in January 2024 her proteinuria had decreased to the range of 1.1 g in 24 hours, and currently her protein to creatinine ratio is close to 0.5. I have encouraged her to continue a low salt diet and focus on her weight loss by increasing her exercise along with her diet. I will see her back in 3 months to continue to readjust her antihypertensive medications. All questions were answered. Evelyn Li M.D., Ph.D. CT CT Job ID: [id number] documented in this encounter Plan of Treatment Upcoming Encounters Date Type Department Care Team (Latest Contact Info) Description 11/03/2024 2:45 PM V BELT BUILDER Clinical Communication Virtual Review in [place], [place] [address] [place] [address] 11/04/2024 9:00 AM V BELT BUILDER Appointment Department of Radiology, [facility], in [address] [phone] Elina Moreau APRN, C.N.P., D.N.P. [address] [place] [phone] 11/04/2024 2:00 PM V BELT BUILDER Appointment Department of Radiation Oncology in [address] [phone] Erasto Bear M.D. [address] [place] [phone] documented as of this encounter Visit Diagnoses Diagnosis Hypertension Essential Primary- Primary Proteinuria documented in this encounter Care Teams Auto Club Travel Counselor Relationship Specialty Start Date End Date Elsewhere, Pcp PCP - General Emergency Medicine 03/14/23 documented as of this encounter
--- OUTSIDE RECORDS SUMMARY | 2024-09-01 13:49 | XMS_ITS | Clinical Summary ---
Author Organization [facility] Address [address] [place] [address] Care Team Providers Care Key Person Name Role Phone Elsewhere, Pcp Primary Care Provider Unavailabl e Source Comments Patient records contain information from all sites at [facility]. For routine questions regarding patient records, call [phone] during business hours, M-F 8:00 AM - 5:00 PM Central Time. Record requests for emergency care only can be directed to [phone] at any time.[facility] Allergies No known active allergies Medications valsartan-hydro [...] Acute Pain. 4 tablet 08/22/2023 3:16 PM DIRECTOR OF MAINTENANCE 08/22/2023 Active valsartan (DIOVAN) 160 mg tablet [...] 08/21/2023 Assessment & Plan (08/21/2023 2:28 PM DIRECTOR OF MAINTENANCE): Continue Provera Obesity Body Mass Index 30-39.9 Adult 08/21/2023 Assessment & Plan (08/21/2023 2:39 PM DIRECTOR OF MAINTENANCE): Body mass index is 39.62 kg/m . Hemangioma Site 04/04/2023 Lesion Spine Thoracic 12/25/2022 Assessment & Plan (08/21/2023 2:42 PM DIRECTOR OF MAINTENANCE): She denies radicular symptoms and feels she [...] 06/15/2021 Assessment & Plan (08/21/2023 2:29 PM DIRECTOR OF MAINTENANCE): Continue Celexa Liver Disease 11/15/2020 Overview (08/21/2023): [place] CT enhancing lesion in the inferior right lobe of the liver measuring 8.4 x 5.5 cm - 09/2019 Assessment & Plan (08/21/2023 2:36 PM DIRECTOR OF MAINTENANCE): [place] CT enhancing lesion in the inferior right lobe of the liver measuring 8.4 x 5.5 cm - 09/2019 Thoracic Aortic Aneurysm Without Rupture Unspeci fied 11/15/2020 Overview (08/21/2023): aneurysmal enlargement of ascending aorta anterior arch measuring 4.1 cm in maximal diameter - 09/[address] [place] Assessment & Plan (08/21/2023 2:39 PM DIRECTOR OF MAINTENANCE): aneurysmal enlargement of ascending aorta anterior arch measuring 4.1 cm in maximal diameter - 09/[address] [place] Dyslipidemia 11/10/2020 Assessment & Plan (08/21/2023 2:32 PM DIRECTOR OF MAINTENANCE): Continue simvastatin Lymphadenopathy 10/30/2019 Diabetes Mellitus Type 2 Without Complication Assessment & Plan (08/21/2023 2:32 PM DIRECTOR OF MAINTENANCE): Lab Results Component Value Date HGBA1C 6.2 (H) 04/23/2023 Checks blood sugar at home and notes it ranges between 85-120. Denies episodes of hypoglycemia. Treated with metformin once daily. She will hold 24 hours prior to procedure. Asthma Mild Persistent 07/10/2019 Assessment & Plan (08/21/2023 2:30 PM DIRECTOR OF MAINTENANCE): Currently on Flovent and p.r.n. albuterol. Patient currently feels breathing is at baseline. Reports using albuterol 2-3 times per day. Last exacerbation occurred May 2023. Notes that breathing feels at baseline today. Patient will continue all inhalers perioperatively, Gastro-Esophageal Reflux Dis ease With Esophagitis Without Bleeding 07/10/2019 Assessment & Plan (08/21/2023 2:33 PM DIRECTOR OF MAINTENANCE): Asymptomatic on Prilosec which she will continue perioperatively Hypertension Essential Primary 07/10/2019 Assessment & Plan (08/21/2023 2:34 PM DIRECTOR OF MAINTENANCE): Blood pressure 150/90. Treated with clonidine, diltiazem, [...] Given: Not Answered Passive Exposure Comments:Worked in [employer] for years Alcohol Use Standard Drinks/Week Comments [...] Friends and Family Patient declined 10/17/2019 Attends [employer] 1 to 4 times per year [...] care, and heating? Not very hard 03/10/2023 [facility] Stress Questionnaire Answer Date [...] your living situation today? I have a [facility] place to live 03/10/2023 Education Answer Date Recorded What is the highest level of school you have completed or the highest degree you have received? Some college, no degree 10/17/2019 Comments No Sex and Gender Information Value Date Recorded Sex Assigned at Female 03/10/2023 7:28 PM CDT Legal Sex Female 4:29 PM DIRECTOR OF MAINTENANCE Gender Identity Female 10/28/2019 8:20 PM DIRECTOR OF MAINTENANCE Sexual Orientation Straight 10/28/2019 8: 20 PM DIRECTOR OF MAINTENANCE Last Filed Vital Signs Vital Sign Reading Time Taken Comments Blood Pressure 134/73 08/22/2023 2:30 PM DIRECTOR OF MAINTENANCE Pulse 70 08/22/2023 2:40 PM DIRECTOR OF MAINTENANCE Temperature 36.7 C (98 F) 08/22/2023 12:06 PM DIRECTOR OF MAINTENANCE Respiratory Rate 12 08/22/2023 2:41 PM DIRECTOR OF MAINTENANCE Oxygen Saturation 95% 08/22/2023 2:40 PM DIRECTOR OF MAINTENANCE Inhaled Oxygen Concentration - - Weight 114 kg (252 lb 6.4 oz) 10/29/2023 3:13 PM DIRECTOR OF MAINTENANCE Height 165.1 cm (5' 5) 08/21/2023 2:55 PM DIRECTOR OF MAINTENANCE Body Mass Index 42 08/21/2023 2:55 PM DIRECTOR OF MAINTENANCE Plan of Treatment Upcoming Encounters Date Type Department Care Team (Latest Contact Info) Description 11/03/2024 2:45 PM DIRECTOR OF MAINTENANCE Clinical Communication Virtual Review in [place], [place] [address] [place] [address] 11/04/2024 9:00 AM DIRECTOR OF MAINTENANCE Appointment Department of Radiology, [facility], in [address] [address] Elina Moreau, TRINA, C.N.P., D.N.P. [address] [place] [phone] 11/04/2024 2:00 PM DIRECTOR OF MAINTENANCE Appointment Department of Radiation Oncology in [address] [place] [address] Erasto Bear M.D. [address] [place] [address] Health Maintenance Due Date Last Done Comments [...] 02/25/2021 Mammogram 01/18/2022 01/18/2021, 04/0 03/2021, 08/11/2019 Cervical/Vaginal Cancer Screening 08/14/2022 08/14/2019 Depression Screening (Annual PHQ-2) 10/15/2023 Hemoglobin A1C 10/24/2023 04/23/2023, 09/0 10/2020, 11/15/2020, Additional history exists Office Visit for Blood Pressure Check / Re-check 11/21/2023 08/21/2023 Influenza Vaccine (#1) 2024 , 09/27/2021, 08/19/2020, Additional history exists Creatinine Level (Kidney Function Test) 02/06/2025 02/07/2024, 10/29/2023, 04/23/2023, Additional history exists Potassium Level 02/06/2025 02/07/2024, 04/14, 02/04/2021, Additional history exists Sodium Level 02/06/2025 02/07/2024, 04/14, 02/04/2021, Additional history exists Lipid (Cholesterol) Screening 11/15/2025 11/15/2020 Pneumococcal vaccine (0-64 years) (3 of 3 - PPSV23 or PCV20) 06/10/2026 06/10/2021, 05/13/2020 DTaP,Tdap,and Td Vaccines (3 - Td or Tdap) 12/24/2033 12/25/2023, 05/13/2020 HPV Vaccines Aged Out No longer eligi ble based on patient's age to complete this topic IPV Vaccines Aged Out No longer eligi ble based on patient's age to complete this topic Medical Devices Implanted Type Area Rivet Tester Device Identifier Shelf Expiration Date Model / Serial / Lot Cmnt W/Mxr Kyp - [id number] Implanted:Qty: 1 on 08/22/2023 by Jasper Moreno M.D. at [facility] [employer] 07/14/2025 [id number] / / [id number] Procedures Procedure Name Priority Date/Time Associated Diagnosis Comments CREATININE WITH EGFR, S/P Routine 10/29/2023 8:41 AM DIRECTOR OF MAINTENANCE Hemangioma Site HEMOGLOBIN A1C, B Routine 04/23/2023 3:5 8 PM CDT Diabetes Mellitus Type 2 Without Complication (HCC) BASIC METABOLIC PANEL, S/P Routine 04/23/2023 3:58 PM CDT Preanesthetic Medical Exam from Last 3 Months or Most Recently Relevant to Health Maintenance Results * (ABNORMAL) Creatinine with Estimated GFR (10/29/2023 8:41 AM DIRECTOR OF MAINTENANCE) Creatinine 1.17(H) 0.59 - 1.04 mg/dL 10/29/2023 9:33 AM DIRECTOR OF MAINTENANCE DTL Estimated GFR (eGFR) 56(L) >=60 mL/min/BSA 10/29/2023 9:33 AM DIRECTOR OF MAINTENANCE DTL Comment: Estimated GFR calculated using the 2020 CKD_EPI creatinine equation. Blood (Blood, Venous) 10/29/2023 8:41 AM DIRECTOR OF MAINTENANCE 10/29/2023 9:11 AM DIRECTOR OF MAINTENANCE Erasto Bear M.D. LAB BLOOD ADD-ON Final Result [facility] [address] [place] [address], [facility] [address] [place] [address] * (ABNORMAL) Hemoglobin A1c (04/23/2023 3:58 PM CDT) [facility] Hemoglobin A1c, B 6.2(H) 4.0 - 5.6 % 04/23/2023 4:42 PM CDT DTL Comment: Hemoglobin A1c values of 5.7-6.4 percent indicate an increased risk for developing diabetes mellitus. In diabetic patients, HbA1c goals should be discussed with healthcare provider. Blood (Blood, Venous) 04/23/2023 3:58 PM CDT 04/23/2023 4:12 PM CDT Jennifer Herrera APRN, C.N.P., M.S.N. LAB BLOOD ADD-O N Final Result [facility] 200 [place] [address], [address] [address] * (ABNORMAL) Basic Metabolic Panel (04/23/2023 3:58 PM CDT) [facility] Potassium, S 4.2 3.6 - 5.2 mmol/L [...] M.S.N. LAB BLOOD ADD-O N Final Result [facility] [address] [place] [address], [place] DTL [facility] [address] [place] [address] from Last 3 Months or Most Recently Relevant to Health Maintenance Insurance [facility] Care Teams Key Person Relationship Specialty Start Date End Date Elsewhere, Pcp PCP - General Emergency Medicine 03/14/23
[2024-09-05 14:02] LABS: HPV Source Vaginal; HPV, High Risk by TMA Not Detected
== END 2024-09-01 13:47 | disposition home or self-care (01) ==
PROVIDERS: PCP Nurse Practitioner Family; Visit Provider Nurse Practitioner Family
DX: Z12.4 Encounter for screening for malignant neoplasm of cervix (principal); I10 Essential (primary) hypertension; R80.9 Proteinuria, unspecified
CPT/HCPCS: 81001; 87086; 87624; 87625; 88141; 88142

== ENCOUNTER 2024-09-23 14:01 | Outpatient (CLI) | payer OTHER, SELFPAY | END 2024-09-23 14:02 | disposition home or self-care (01) | PROVIDERS: PCP Nurse Practitioner Family; Visit Provider Internal Medicine Nephrology | DX: I10 Essential (primary) hypertension (principal); R80.9 Proteinuria, unspecified | CPT/HCPCS: 80069 ==

== ENCOUNTER 2024-10-13 12:15 | Emergency (ER) | payer OTHER, SELFPAY ==
[2024-10-13 12:44] VITALS: BP 171/95; PULSE 89; RESP 18; TEMP 36.8; O2SAT 97; BMI 39.9
--- NOTE | 2024-10-13 12:47 | CRLHL7_ITS ---
For Patients: As a result of the Century Cures Act, medical imaging exams and procedure reports are released immediately into your electronic medical record. You may view this report before your referring provider. If you have questions, please contact your health care provider. INDICATION: Leg pain and swelling TECHNIQUE: Ultrasound venous duplex lower left extremity. Compression venous exam was performed using guajardo-scale, color Doppler, and spectral Doppler analysis. COMPARISON: None. FINDINGS: Sonographic imaging demonstrates the left common femoral, deep femoral, superficial femoral, popliteal, posterior tibial and greater saphenous and the contralateral right common femoral veins to be fully compressible with normal color Doppler blood flow. IMPRESSION: Normal left lower extremity venous ultrasound, no sign of deep venous thrombosis. Dictated by Gabe Stephenson MD @ 10/13/2024 1:27:58 PM (Electronically Signed)
--- NOTE | 2024-10-13 14:36 | ED.GENADULT ---
HPI - General Adult General Chief complaint: Extremity Pain/Injury, Lower Stated complaint: needs left leg/knee checked out-sent by primary Time Seen by Provider: 10/13/24 14:31 History of Present Illness HPI narrative: This 54-year-old female comes in reporting left knee pain that has been worsening over the past days or weeks. She states that about a week ago she had lots of pain and was difficult to ambulate. She is reporting pain with weight-bearing but not much discomfort when not weight-bearing. She does not describe any recent injury event or overuse activity. She went to clinic and was sent here for evaluation. Related Data Home Medications ?Medication ?Instructions ?Recorded ?Confirmed empagliflozin 10 mg tablet 10 mg PO QDAY 09/02/24 09/02/24 (Jardiance) Previous Rx's ?Medication ?Instructions ?Recorded albuterol sulfate 90 mcg/actuation 2 inh inhalation Q4-6H 30 days 10/31/22 aerosol inhaler (Ventolin HFA) #8.5 grams cholecalciferol (vitamin D3) 1,250 1,250 mcg PO QWEEK #12 caps 11/30/23 mcg (50,000 unit) capsule citalopram 20 mg tablet (Celexa) 20 mg PO QDAY #90 tabs 11/30/23 trazodone 100 mg tablet 100 mg PO QHS #90 tabs 12/25/23 simvastatin 20 mg tablet 20 mg PO DAILY #90 tabs 05/15/24 semaglutide (weight loss) 2.4 2.4 mg (0.75 mL) subcut QWEEK 07/04/24 mg/0.75 mL subcutaneous pen #9.75 mL injector (Chago) diltiazem HCl 120 mg 120 mg PO BID #180 caps 07/11/24 capsule,extended release 12 hr fluticasone propionate 220 2 inh inhalation BID 90 days #36 07/11/24 mcg/actuation HFA aerosol inhaler grams omeprazole 40 mg capsule,delayed 40 mg PO QDAY #90 caps 07/11/24 release valsartan 160 1 tab PO DAILY #90 tabs 07/11/24 mg-hydrochlorothiazide 25 mg tablet RSV vac, preF A and preF B(PF) 120 0.5 ml IM ONCE #1 ea 09/01/24 mcg/0.5 mL IM solution (Abrysvo (PF)) ketorolac 10 mg tablet 10 mg PO Q8H 5 days #15 tabs 10/13/24 Allergies Allergy/AdvReac Type Severity Reaction Status Date / Time No Known Drug Allergies Allergy Verified 09/02/24 13:33 Review of Systems Status of ROS: Reports: 10 or more systems reviewed and unremarkable except as noted in History and below Narrative: Constitutional: No fevers, no weight gain or loss. Eyes: No discharge. No vision changes. HENT: No congestion, no sore throat, no ear pain. Cardiovascular: No chest pain, no palpitations. Respiratory: No shortness of breath, no wheezes, no cough. Gastrointestinal: No abdominal pain, no vomiting, no diarrhea. Genitourinary: No dysuria, no hematuria. Musculoskeletal: Left knee pain as described above. Skin: No rashes, no pruritis. Neurological: No dizziness, weakness, sensory change, speech change. Endo/Heme/Allergies: No bruising or bleeding. No polydipsia. Pysch: no suicidality, no anxiety, no insomnia. All other systems reviewed and are negative. [facility] Medical History (Updated 10/13/24 @ 15:48 by Andrew Deleon MD) Hypertension ?I10 - Essential (primary) hypertension (ICD-10) Insomnia ?G47.00 - Insomnia, unspecified (ICD-10) Acute cervical radiculopathy ?M54.12 - Radiculopathy, cervical region (ICD-10) Iron deficiency anemia ?D50.9 - Iron deficiency anemia, unspecified (ICD-10) Surgical History History of tubal ligation ?Z98.51 - Tubal ligation status (ICD-10) History of left knee surgery ?Z98.890 - Other specified postprocedural states (ICD-10) History of foot surgery ?Z98.890 - Other specified postprocedural states (ICD-10) History of breast surgery ?Z98.890 - Other specified postprocedural states (ICD-10) Family History Mother Colon cancer Diabetes High blood pressure Father Diabetes High blood pressure Maternal Grandfather Diabetes High blood pressure Brother Heart disease High blood pressure Maternal Grandmother High blood pressure Sister High blood pressure Paternal Grandfather Parkinsonism Paternal Grandmother Stroke Social History (Updated 11/27/23 @ 11:13 by Cori Rogers APRN, INVESTOR RELATIONS ANALYST) Narrative: The patient is . She works for [employer] remotely from her home in [place], after relocating from [place]. No alcohol. Nonsmoker. No formal exercise. The patient has 2 adult children, 1 teenager, 3 grandchildren. Smoking Status: Never smoker Exam Narrative: Exam Narrative: Constitutional: Well-developed, well-nourished, no acute distress. HEENT: Normocephalic, atraumatic. Neck: Normal range of motion. Nontender. Supple. Heart: Intact distal pulses. Lungs: No chest discomfort. No wheezes, rhonchi, or rales. Abdomen: Nontender. Back: Normal range of motion. Extremities: Diffuse left knee pain that is mostly present when bearing weight. No sign of deformity or significant effusion. Skin: Intact. No rash. Warm. No erythema or pallor. Neurologic: No altered sensation. No weakness. Alert and oriented. Psychiatric: No suicidality. No anxiety or depression. No insomnia. Nursing notes and vitals signs are reviewed. Const: Vital Signs, click to edit/add: Vital Signs - 24 hr 10/13/24 12:44 10/13/24 14:39 Temperature 98.3 F Pulse Rate [Pulse Oximeter] 89 79 Respiratory Rate 18 16 Blood Pressure [Ri ght Upper Arm] 171/95 H 154/104 H Pulse Oximetry 97 96 Oxygen Delivery Me thod Room Air Course Vital Signs Vital signs: Initial Vital Signs Temperature 98.3 F 10/13/24 12:44 Temperature Source Temporal Artery Scan 10/13/24 12:44 Pulse Rate 89 10/13/24 12:44 Respiratory Rate 18 10/13/24 12:44 Blood Pressure 171/95 H 10/13/24 12:44 Blood Pressure Mean 120 H 10/13/24 12:44 Pulse Oximetry 97 10/13/24 12:44 Vital Signs Temperature 98.3 F 10/13/24 12:44 Pulse Rate 89 10/13/24 12:44 Respiratory Rate 18 10/13/24 12:44 Blood Pressure 171/95 H 10/13/24 12:44 Pulse Oximetry 97 10/13/24 12:44 Temperature 98.3 F 10/13/24 12:44 Pulse Rate 79 10/13/24 14:39 Respiratory Rate 16 10/13/24 14:39 Blood Pressure 154/104 H 10/13/24 14:39 Pulse Oximetry 96 10/13/24 14:39 Oxygen Delivery Method Room Air 10/13/24 14:39 Medical Decision Making MDM Narrative Medical decision making narrative: This patient was instructed to come here from a clinic appointment because of her knee pain. She does not report any specific injury event or strenuous activity but does report worsening pain over the past weeks and especially in the past few days. She has minimal pain when not weight-bearing but lots of pain when bearing weight. An ultrasound of her left lower extremity is obtained and shows no evidence of deep venous thrombosis. I did also obtain a weight-bearing x-ray of her left knee and this does show significant osteoarthritis with the medial component of her knee joint showing what looks to be bone on bone. I advised the patient to follow-up with orthopedic clinic for ongoing managing. She did receive a prescription for Toradol. Imaging Data Venous US: Radiologist's impression: Normal left lower extremity venous ultrasound, no sign of deep venous thrombosis. XR L Knee: Radiologist's impression: Osteoarthritis of the left knee particularly the medial compartment with [id number] and hypertrophic spurring. Discharge Plan Discharge Clinical Impression: Osteoarthritis Patient Disposition: Home, Self-Care Condition: Unchanged Additional Instructions: Take medication as needed and directed. Activity as tolerated. Follow-up with orthopedic clinic for ongoing diagnosis and management. Call [phone] for appointment. Prescriptions: New ketorolac 10 mg tablet 10 mg PO Q8H 5 Days Qty: 15 0RF No Action trazodone 100 mg tablet 100 mg PO QHS Qty: 90 3RF Jardiance 10 mg tablet 10 mg PO QDAY albuterol sulfate [Ventolin HFA] 90 mcg/actuation HFA aerosol inhaler 2 inh inhalation Q4-6H 30 Days Qty: 8.5 3RF citalopram [Celexa] 20 mg tablet 20 mg PO QDAY Qty: 90 3RF cholecalciferol (vitamin D3) 1,250 mcg (50,000 unit) capsule 1,250 mcg PO QWEEK Qty: 12 0RF simvastatin 20 mg tablet 20 mg PO DAILY Qty: 90 3RF Wegovy 2.4 mg/0.75 mL pen injector 2.4 mg subcut QWEEK Qty: 9.75 1RF fluticasone propionate 220 mcg/actuation HFA aerosol inhaler 2 inh inhalation BID 90 Days Qty: 36 3RF omeprazole 40 mg capsule,delayed release(DR/EC) 40 mg PO QDAY Qty: 90 3RF valsartan-hydrochlorothiazide 160-25 mg tablet 1 tab PO DAILY Qty: 90 3RF diltiazem HCl 120 mg capsule,extended release 12 hr 120 mg PO BID Qty: 180 3RF Abrysvo (PF) 120 mcg/0.5 mL recon soln 0.5 ml IM ONCE Qty: 1 0RF Rx Instructions: as a single dose Follow Up/Referrals: Cori Rogers APRN, INVESTOR RELATIONS ANALYST [Primary Care Provider] - Stand Alone Forms: [facility] Info Inst[facility]
[2024-10-13 14:39] VITALS: BP 154/104; PULSE 79; RESP 16; O2SAT 96
--- NOTE | 2024-10-13 14:49 | CRLHL7_ITS ---
For Patients: As a result of the Century Cures Act, medical imaging exams and procedure reports are released immediately into your electronic medical record. You may view this report before your referring provider. If you have questions, please contact your health care provider. INDICATION: Pain with weightbearing. TECHNIQUE: Two views of the left knee. FINDINGS: Osteoarthritis medial compartment left knee with [id number], spurring, and some sclerosis. Mild narrowing of the lateral and less so the patellofemoral compartment. IMPRESSION: Osteoarthritis of the left knee particularly the medial compartment with [id number] and hypertrophic spurring. Dictated by Roberto Philip MD @ 10/13/2024 3:28:03 PM (Electronically Signed)
== END 2024-10-13 15:56 | disposition home or self-care (01) ==
PROVIDERS: Emergency Provider Emergency Medicine Emergency Medical Services; PCP Nurse Practitioner Family
DX: M17.12 Unilateral primary osteoarthritis, left knee (principal)
CPT/HCPCS: 73560; 93971; 99284

== ENCOUNTER 2025-03-14 11:06 | Emergency (ER) | payer OTHER, SELFPAY ==
--- OUTSIDE RECORDS SUMMARY | 2025-03-14 11:08 | XMS_ITS | Clinical Summary ---
Author Organization [employer] [facility] Address [address] [place] [id number] Care Team Providers Care Taker Down Name Role Phone Cori Rogers NP Primary Care Provider [phone] Allergies No known active allergies Medications allopurinol (ZYLOPRIM) 100 mg tablet allopurinol 100 mg tablet Active atenolol (TENORMIN) 100 mg tablet atenolol 100 mg tablet Active cloNIDine HCl (CATAPRES) 0.2 mg tablet Take 0.2 mg by mouth. 9 Active cloNIDine HCl (CATAPRES) 0.1 mg tablet clonidine HCl 0.1 mg tablet Active fluticasone furoate-vilant richard (BREO ELLIPTA) 100-25 mcg/dose inhaler Breo Ellipta 100 mcg-25 mcg/dose powder for inhalation Active fluticasone furoate-vilant richard (BREO ELLIPTA) 200mcg/25mcg inhaler Inhale 1 Puff by mouth. 9 Active hepatitis B vaccine adult, PF, (ENGERIX-B, PF,) 20 mcg/mL syringe Engerix-B (PF) 20 mcg/mL intramuscular syringe Active iron,carbonyl- vitamin C (VITRON-C) 65 mg iron- 125 mg Delayed-Releas e tablet Take 1 Tab by mouth. 9 Active measles, mumps & rubella vaccine (M-M-R II, PF,) 1,000-12,500 TCID50/0.5 mL injection M-M-R II (PF) 1,000-12,500 TCID50/0.5 mL subcutaneous solution Active metFORMIN (GLUCOPHAGE) 500 mg tablet metformin 500 mg tablet Active NIFEdipine (PROCARDIA XL) 60 mg Extended-Relea se tablet nifedipine ER 60 mg tablet,extended release 24 hr Active NIFEdipine (ADALAT CC) 90 mg Extended-Relea se tablet Take 90 mg by mouth. 9 Active omeprazole (PRILOSEC) 40 mg Delayed-Releas e capsule omeprazole 40 mg capsule,delayed release 9 Active simvastatin (ZOCOR) 20 mg tablet simvastatin 20 mg tablet Active valsartan-hydr ochlorothiazid e (DIOVAN HCT) 160-25 mg per tablet Take 1 Tab by mouth. Active cyclobenzaprin e (FLEXERIL) 10 mg tabletIndicati ons:Cervical radiculopathy, acute Take 1 tablet by mouth 3 times daily if needed for Muscle Spasm. 15 tablet 9 Active oxyCODONE (ROXICODONE) 5 mg immediate release tabletIndicati ons:Pain, dental Take 1 Tablet (5 mg) by mouth every 6 hours if needed for Pain. 6 Tablet 4 Active Active Problems Problem Noted Date Diagnosed Date Diabetes 09/20/2019 Chronic pain of right knee 07/10/2019 Essential hypertension 07/10/2019 Gastroesophageal reflux disease with esophagitis 07/10/2019 Mild persistent asthma without complication 06/16 Prediabetes 07/10/2019 Immunizations Immunization Administration Dates Next Due Influenza, IIV4 08/18/2019 Social History Tobacco Use Types Packs/Day Years Used Date Smoking Tobacco: Never Social Connections Answer Date Recorded Frequency of Communication with Friends and Fami ly Not on file 01/27/2022 Interpersonal Safety Answer Date Record ed Are you being hit, kicked, p ushed or yelled at (see row info)? No 04/25/2024 Interpersonal Safety Abuse 12 - 18 Not on file 04/25/2024 Interpersonal Safety Ambulatory Vulnerability No t on file 04/25/2024 Comments No Sex and Gender Information Value Date Recorded Sex Assigned at Not on file Legal Sex Female 8:12 PM HELP DESK SUPPORT SPECIALIST Gender Identity Not on file Sexual Orientation [...] age 18+ 1988 Hepatitis C screening for age 18-79 1988 Hepatitis B series for 19+ ( 1 of 3 - 19+ 3-dose series) 1989 Pneumococcal series for age 50+ (1 of 2 - PCV) 1989 Tetanus booster 1990 Pap test for age 21-65 1991 Colonoscopy through age 75 2015 Lipids for age 45-75 2015 Mammogram for age 45-75 2015 Zoster (shingles) series for age 50+ (1 of 2) 2020 Influenza Vaccine (Season Ended) 2025 08/18/20 19 COVID-19 vaccine series Completed 08/29/20 24, 12/08/2020, 11/10/2020 Insurance [facility] Care Teams Taker Down Relationship Specialty Start Date End Date Cori Rogers DATA SOFTWARE ENGINEER [address] [place] [id number] PCP - General Emergency Medicine 01/06/22
--- OUTSIDE RECORDS SUMMARY | 2025-03-14 11:08 | XMS_ITS | Patient Health Record ---
Author Organization [facility] Address [address] [place] [address] Support Name Relationship Address Phone Pinky Acosta Guarantor Unknown Unavailable Reason For Referral No Information Medications Medication SIG (Take, Route, Frequency, Duration) Notes Start Date End Date Status Dymista *please review f or potential update for e-prescription and drug interaction check* Dymista 9 10/15/18 Active metformin qhs *please review f or potential update for e-prescription and drug interaction check* metformin 9 10/15/18 Active hydroCHLOROthiazide *please revi ew for potential update for e-prescription and drug interaction check* hydrochlorothiazide 9 10/15/18 Active ProAir RespiClick inhale 2 puffs (180 mcg) by inhalation route every 4 hours as needed. RESCUE INHALER *please review for potential update for e-prescription and drug interaction check* ProAir RespiClick 9 10/15/18 Active Pepto-Bismol *please review f or potential update for e-prescription and drug interaction check* Pepto-Bismol 8 10/15/18 Active Protonix *please review f or potential update for e-prescription and drug interaction check* Protonix 9 10/15/18 Active Metformin *please review f or potential update for e-prescription and drug interaction check* metformin 9 10/15/18 Active Hydromet *please review f or potential update for e-prescription and drug interaction check* Hydromet 9 10/15/18 Active Ed A-Hist *please review f or potential update for e-prescription and drug interaction check* Ed A-Hist 9 10/15/18 Active Simvastatin qd *please review f or potential update for e-prescription and drug interaction check* simvastatin 9 10/15/18 Active Mitigare *please review f or potential update for e-prescription and drug interaction check* Mitigare 8 10/15/18 Active Omeprazole qd *please review f or potential update for e-prescription and drug interaction check* omeprazole 9 10/15/18 Active Flagyl *please review f or potential update for e-prescription and drug interaction check* Flagyl 8 10/15/18 Active Breo Ellipta inhale 1 puff by inhalation route once daily at the same time each day *please review for potential update for e-prescription and drug interaction check* Breo Ellipta 9 10/15/18 Active Valsartan-hydroCHLOROthi azide take 1 tablet by oral route once daily. DC THE HCTZ *please review for potential update for e-prescription and drug interaction check* valsartan-hydrochloroth iazide 9 10/15/18 Active Atenolol qd *please review f or potential update for e-prescription and drug interaction check* atenolol 9 10/15/18 Active Allopurinol one tablet by mouth daily for gout prevention *please review for potential update for e-prescription and drug interaction check* allopurinol 9 10/15/18 Active Medrol (Marcio) *please review f or potential update for e-prescription and drug interaction check* Medrol (Marcio) 9 10/15/18 Active cloNIDine HCl qhs *please review f or potential update for e-prescription and drug interaction check* clonidine HCl 9 10/15/18 Active Ceftin *please review f or potential update for e-prescription and drug interaction check* Ceftin 9 10/15/18 Active Amoxicillin *please review f or potential update for e-prescription and drug interaction check* amoxicillin 8 10/15/18 Active Plan Of Treatment No Information
[2025-03-14 11:13] VITALS: BP 152/87; PULSE 88; RESP 17; TEMP 36.2; O2SAT 97; BMI 42.8
--- NOTE | 2025-03-14 11:31 | CRLHL7_ITS ---
For Patients: As a result of the Century Cures Act, medical imaging exams and procedure reports are released immediately into your electronic medical record. You may view this report before your referring provider. If you have questions, please contact your health care provider. CLINICAL HISTORY: KNot in leg pain TECHNIQUE: A compression venous ultrasound exam was performed of the left lower extremity using guajardo-scale imaging, color Doppler and spectral Doppler analysis. FINDINGS: Sonographic imaging of the left lower extremity demonstrates normal compressibility and color Doppler venous blood flow within the common femoral vein, deep femoral vein, and the proximal greater saphenous vein. Within the thigh, the femoral vein is patent and compressible. At a lower level, the popliteal and posterior tibial veins also show normal compressibility and color Doppler venous blood flow. Limited imaging of the contralateral groin demonstrates a normal spectral waveform and color Doppler venous blood flow within the left common femoral vein. IMPRESSION: No evidence of deep vein thrombosis within the right lower extremity. Dictated by Jing Anderson MD @ 03/14/2025 12:55:17 PM (Electronically Signed)
[2025-03-14] MEDS: HYDROCODONE-ACETAMIN 5-325 MG 1 TAB PO (11:36)
--- NOTE | 2025-03-14 11:36 | ED.GENADULT ---
HPI - General Adult General Chief complaint: Extremity Pain/Injury, Lower Stated complaint: knot in left leg Time Seen by Provider: 03/14/25 11:07 History of Present Illness HPI narrative: 54-year-old female couple weeks status post a geniculate artery ablation done in outpatient surgery center her by vascular surgery clinic, this was done for knee pain. She has significant arthritis in that knee but was felt this would be a good treatment to temporize until she can get a total knee replacement. She reports some swelling and discomfort in the distal medial aspect of her thigh and feels a lump in that area. She has got a little bit of pain in the area as well. She has been ambulating and using her leg. She has attempted to reach the clinic and has been unable and came to the ER. She has no history of bleeding or clotting problems. Related Data Home Medications ?Medication ?Instructions ?Recorded ?Confirmed empagliflozin 10 mg tablet 10 mg PO QDAY 09/02/24 02/09/25 (Jardiance) naproxen 500 mg tablet 500 mg PO BID PRN 03/14/25 03/14/25 Previous Rx's ?Medication ?Instructions ?Recorded albuterol sulfate 90 mcg/actuation 2 inh inhalation Q4-6H 30 days 10/31/22 aerosol inhaler (Ventolin HFA) #8.5 grams cholecalciferol (vitamin D3) 1,250 1,250 mcg PO QWEEK #12 caps 11/30/23 mcg (50,000 unit) capsule citalopram 20 mg tablet (Celexa) 20 mg PO QDAY #90 tabs 11/30/23 simvastatin 20 mg tablet 20 mg PO DAILY #90 tabs 05/15/24 semaglutide (weight loss) 2.4 2.4 mg (0.75 mL) subcut QWEEK 07/04/24 mg/0.75 mL subcutaneous pen #9.75 mL injector (Chago) diltiazem HCl 120 mg 120 mg PO BID #180 caps 07/11/24 capsule,extended release 12 hr fluticasone propionate 220 2 inh inhalation BID 90 days #36 07/11/24 mcg/actuation HFA aerosol inhaler grams omeprazole 40 mg capsule,delayed 40 mg PO QDAY #90 caps 07/11/24 release valsartan 160 1 tab PO DAILY #90 tabs 07/11/24 mg-hydrochlorothiazide 25 mg tablet RSV vac, preF A and preF B(PF) 120 0.5 ml IM ONCE #1 ea 09/01/24 mcg/0.5 mL IM solution (Abrysvo (PF)) metformin 500 mg tablet,extended 500 mg PO BID #180 tabs 10/20/24 release 24 hr trazodone 100 mg tablet 100 mg PO QHS #90 tabs 01/23/25 ketorolac 10 mg tablet 10 mg PO Q8H 5 days #15 tabs 01/26/25 methylprednisolone 4 mg tablets in See Rx Instructions PO PER PKG DIR 02/20/25 a dose pack (Medrol (Marcio)) #21 ea Allergies Allergy/AdvReac Type Severity Reaction Status Date / Time No Known Drug Allergies Allergy Verified 03/14/25 11:10 Review of Systems Status of ROS: Reports: 6 or more systems reviewed and unremarkable except as noted in History and below [facility] Medical History Hypertension ?I10 - Essential (primary) hypertension (ICD-10) Insomnia ?G47.00 - Insomnia, unspecified (ICD-10) Acute cervical radiculopathy ?M54.12 - Radiculopathy, cervical region (ICD-10) Iron deficiency anemia ?D50.9 - Iron deficiency anemia, unspecified (ICD-10) Surgical History History of tubal ligation ?Z98.51 - Tubal ligation status (ICD-10) History of left knee surgery ?Z98.890 - Other specified postprocedural states (ICD-10) History of foot surgery ?Z98.890 - Other specified postprocedural states (ICD-10) History of breast surgery ?Z98.890 - Other specified postprocedural states (ICD-10) Family History Mother Colon cancer Diabetes High blood pressure Father Diabetes High blood pressure Maternal Grandfather Diabetes High blood pressure Brother Heart disease High blood pressure Maternal Grandmother High blood pressure Sister High blood pressure Paternal Grandfather Parkinsonism Paternal Grandmother Stroke Social History Narrative: The patient is . She works for [employer] remotely from her home in [place], after relocating from [place]. No alcohol. Nonsmoker. No formal exercise. The patient has 2 adult children, 1 teenager, 3 grandchildren. Smoking Status: Never smoker Exam Narrative: Exam Narrative: Objective: Patient's blood pressure is just minimally elevated O2 sat is 97% on room air patient has no chest pain or breathing problem The left lower extremity shows no redness warmth erythema there is a little bit a firmness in her posterior medial distal thigh area just above her knee. I do not see any lower extremity edema other than that. There is no evidence of obvious abscess or cellulitic change. Range of motion the knee is fairly full. Distal CMS is intact. Const: Vital Signs, click to edit/add: Vital Signs - 24 hr 03/14/25 11:13 Temperature 97.1 F L Pulse Rate [Pulse Oximeter] 88 Respiratory Rate 17 Blood Pressure [Ri ght Upper Arm] 152/87 H Pulse Oximetry 97 Oxygen Delivery Me thod Room Air Course Vital Signs Vital signs: Initial Vital Signs Temperature 97.1 F L 03/14/25 11:13 Temperature Source Temporal Artery Scan 03/14/25 11:13 Pulse Rate 88 03/14/25 11:13 Respiratory Rate 17 03/14/25 11:13 Blood Pressure 152/87 H 03/14/25 11:13 Blood Pressure Mean 108 H 03/14/25 11:13 Pulse Oximetry 97 03/14/25 11:13 Oxygen Delivery Method Room Air 03/14/25 11:13 Vital Signs Temperature 97.1 F L 03/14/25 11:13 Pulse Rate 88 03/14/25 11:13 Respiratory Rate 17 03/14/25 11:13 Blood Pressure 152/87 H 03/14/25 11:13 Pulse Oximetry 97 03/14/25 11:13 Oxygen Delivery Method Room Air 03/14/25 11:13 Temperature 97.1 F L 03/14/25 11:13 Pulse Rate 88 03/14/25 11:13 Respiratory Rate 17 03/14/25 11:13 Blood Pressure 152/87 H 03/14/25 11:13 Pulse Oximetry 97 03/14/25 11:13 Oxygen Delivery Method Room Air 03/14/25 11:13 Medications Administered Medications: Discontinued Medications Generic Name Dose Route Start Last Admin Trade Name Rodolfo PRN Reason Stop Dose Admin Hydrocodone Bitart/Acetaminophen 1 tab 03/14/25 11:31 03/14/25 11:36 Hydrocodone-Acetamin 5-325 Mg 1 Tab PO 03/14/25 11:32 1 tab ONCE ONE Administration Medical Decision Making MDM Narrative Medical decision making narrative: 54-year-old female with a geniculate artery ablation for knee pain. She has degenerative arthritis in the left knee. At this point she has some lower distal medial posterior knee discomfort and says mild firmness. I do not think this constitutes to 2 to a abscess or infection, I think an ultrasound of her leg would be appropriate to rule out any clotting or bleeding problem. Also this be helpful to look at the area involved. Will attempt to consult her surgical clinic. Would also get her knee immobilizer crutches will give her [place] now she would might benefits with pain medicine at home. Recommend ice to the affected area and then follow-up with the vascular clinic as she they recommend. Addendum 1243: The patient's ultrasound of her leg is negative no clots or other infectious looking abscess. Recommend knee immobilizer, crutches nonweightbearing contact the clinic on Sunday, [place] as needed for pain return as needed ice recommended as well. Discharge Plan Discharge Clinical Impression: Post-op pain Patient Disposition: Home w/ Parent or Adult Condition: Stable Additional Instructions: Knee immobilizer, crutches, nonweightbearing for the next couple of days until he can see primary care. Contact the vascular surgery clinic on Sunday. You can use the pain medicine as needed but use sparingly. Elevation and ice to be recommended on the inner aspect of the knee. Activity Level: Light activity Discharge Diet: Low Fat/Low Cholesterol Prescriptions: No Action Jardiance 10 mg tablet 10 mg PO QDAY albuterol sulfate [Ventolin HFA] 90 mcg/actuation HFA aerosol inhaler 2 inh inhalation Q4-6H 30 Days Qty: 8.5 3RF naproxen 500 mg tablet 500 mg PO BID PRN citalopram [Celexa] 20 mg tablet 20 mg PO QDAY Qty: 90 3RF cholecalciferol (vitamin D3) 1,250 mcg (50,000 unit) capsule 1,250 mcg PO QWEEK Qty: 12 0RF simvastatin 20 mg tablet 20 mg PO DAILY Qty: 90 3RF Wegovy 2.4 mg/0.75 mL pen injector 2.4 mg subcut QWEEK Qty: 9.75 1RF fluticasone propionate 220 mcg/actuation HFA aerosol inhaler 2 inh inhalation BID 90 Days Qty: 36 3RF omeprazole 40 mg capsule,delayed release(DR/EC) 40 mg PO QDAY Qty: 90 3RF valsartan-hydrochlorothiazide 160-25 mg tablet 1 tab PO DAILY Qty: 90 3RF diltiazem HCl 120 mg capsule,extended release 12 hr 120 mg PO BID Qty: 180 3RF Abrysvo (PF) 120 mcg/0.5 mL recon soln 0.5 ml IM ONCE Qty: 1 0RF Rx Instructions: as a single dose metformin 500 mg tablet extended release 24 hr 500 mg PO BID Qty: 180 3RF trazodone 100 mg tablet 100 mg PO QHS Qty: 90 0RF ketorolac 10 mg tablet 10 mg PO Q8H 5 Days Qty: 15 0RF methylprednisolone [Medrol (Marcio)] 4 mg tablets,dose pack See Rx Instructions PO PER PKG DIR Qty: 21 0RF Rx Instructions: PO PER PKG DIR Follow Up/Referrals: Cori Rogers, RAILWAY SIGNAL TECHNICIAN, BULLDOZER MECHANIC [Primary Care Provider, Family Practice] Stand Alone Forms: MyHealth Info Instructions
== END 2025-03-14 12:54 | disposition home or self-care (01) ==
PROVIDERS: Emergency Provider Family Medicine; PCP Nurse Practitioner Family
DX: G89.18 Other acute postprocedural pain (principal)
CPT/HCPCS: 93971; 99283; 99284; A9270

== ENCOUNTER 2025-05-08 13:55 | Outpatient (CLI) | payer OTHER, SELFPAY | END 2025-05-08 13:56 | disposition home or self-care (01) | PROVIDERS: PCP Nurse Practitioner Family; Visit Provider Nurse Practitioner Family | DX: Z01.818 Encounter for other preprocedural examination (principal) | CPT/HCPCS: 80053; 85025 ==

== ENCOUNTER 2025-05-13 13:56 | Outpatient (CLI) | payer OTHER, SELFPAY | END 2025-05-13 13:57 | disposition home or self-care (01) | LOC: RAD 13:57 | PROVIDERS: PCP Nurse Practitioner Family; Visit Provider Nurse Practitioner Family | DX: R94.31 Abnormal electrocardiogram [ECG] [EKG] (principal) | CPT/HCPCS: 93306 ==

== ENCOUNTER 2025-05-19 08:23 | Day surgery (SDC) | payer OTHER, SELFPAY ==
[2025-05-19] VITALS (23 sets, daily range): BP systolic 89–138; BP diastolic 56–91; PULSE 50–88; RESP 12–18; TEMP 35.6–36.7; O2SAT 88–98; BMI 42.6
[2025-05-19] MEDS: MIDAZOLAM HCL 1 MG/ML inj IVP (07:27)
[2025-05-19] MEDS: OXYCODONE (CR) 10 MG TAB.ER.12H PO (07:27)
[2025-05-19] MEDS: CELECOXIB 200 MG CAPSULE PO ×2 (07:27→21:19)
[2025-05-19] MEDS: ACETAMINOPHEN 500 MG TABLET 1000 MG PO ×3 (07:27→21:18)
[2025-05-19] MEDS: LACTATED RINGERS 1000 ML 1,000 ML 100 ML IV ×2 (07:30→11:05)
[2025-05-19] MEDS: SODIUM CHLORIDE 0.9 % (FLUSH) 10 ML SYRINGE IVF (09:24)
--- NOTE | 2025-05-19 10:02 | P.ANES_ITS ---
Anesthesia Charges Start Date/Time Anesthesia Start Date: 05/19/25 Anesthesia Start Time: 07:36 Stop Date/Time Anesthesia Stop Date: 05/19/25 Anesthesia Stop Time: 10:01 Coding CPT Codes CPT Codes: ANESTH KNEE ARTHROPLASTY - 89894 ([id number]) P1 - NORMAL HEALTHY PATIENT, QK - TIE HACKER 2-4 CNCRNT ANES PROC
--- NOTE | 2025-05-19 10:02 | W.ANESCHARGE ---
Anesthesia Charges Start Date/Time Anesthesia Start Date: 05/19/25 Anesthesia Start Time: 07:36 Stop Date/Time Anesthesia Stop Date: 05/19/25 Anesthesia Stop Time: 10:01 Coding CPT Codes CPT Codes: ANESTH KNEE ARTHROPLASTY - 44686 ([id number]) P1 - NORMAL HEALTHY PATIENT, QK - DIVISION MERCHANDISE MANAGER 2-4 CNCRNT ANES PROC
--- NOTE | 2025-05-19 10:11 | SUR.PREOP ---
TIME?OUT:?1005 PT/RN/TAVARES?VERIFICATION?OF?SURGICAL?SITE,?PROCEDURE,?AND?CONSENT OBTAINED?PRIOR?TO?INVASIVE?PROCEDURE.rn tavares pt and consent left knee
--- NOTE | 2025-05-19 10:14 | P.NB_ITS ---
Nerve Block Nerve Block Time Seen by Provider: 10:05 Date Seen: 05/19/25 Type of block requested by surgeon for post-operative analgesia: adductor canal Side: left Time out performed: Yes Verification of patient name: Yes Verification of date of : Yes Site marking: site marked Name of person performing procedure: Caio Continuous monitoring Was continuous monitoring of O2 sat, B/P, elementary school social worker, recorded every 15 minutes?: Yes Procedure Checklist: sterile prep, needles and gloves Ultrasound guided. Images saved: Yes Medications given in 5ml increments after negative aspiration: Marcaine %: 0.25 mL: 15 Needle gauge: 20 Precedex (mcg): 25 Patient tolerated procedure well: Yes Block Charges Block Charge (with Pro Fee): Femoral Nerve Use of Ultrasound Machine for Block: Yes- US Guidance/pain block
--- NOTE | 2025-05-19 10:15 | P.ANES_ITS ---
Anesthesia Charges Start Date/Time Anesthesia Start Date: 05/19/25 Anesthesia Start Time: 10:40 Stop Date/Time Anesthesia Stop Date: 05/19/25 Anesthesia Stop Time: 13:37 Coding CPT Codes CPT Codes: ANESTH KNEE ARTHROPLASTY - 68204 ([id number]) P3 - PATIENT W/SEVERE SYS DISEASE, QK - ASSISTANT SALES DIRECTOR 2-4 CNCRNT ANES PROC, QX - INTERLACER SVC W/ MD MED DIRECTION
--- NOTE | 2025-05-19 10:15 | P.NB_ITS ---
Nerve Block Nerve Block Time Seen by Provider: 10:05 Date Seen: 05/19/25 Type of block requested by surgeon for post-operative analgesia: geniculars Side: left Time out performed: Yes Verification of patient name: Yes Verification of date of : Yes Site marking: site marked Name of person performing procedure: Caio Continuous monitoring Was continuous monitoring of O2 sat, B/P, radiation monitor, recorded every 15 minutes?: Yes Procedure Checklist: sterile prep, needles and gloves Ultrasound guided. Images saved: Yes Medications given in 5ml increments after negative aspiration: Marcaine %: 0.25 mL: 9 Needle gauge: 25 Patient tolerated procedure well: Yes Block Charges Block Charge (with Pro Fee): Genicular Nerve Block
--- NOTE | 2025-05-19 10:15 | W.ANESCHARGE ---
Anesthesia Charges Start Date/Time Anesthesia Start Date: 05/19/25 Anesthesia Start Time: 10:40 Stop Date/Time Anesthesia Stop Date: 05/19/25 Anesthesia Stop Time: 13:37 Coding CPT Codes CPT Codes: ANESTH KNEE ARTHROPLASTY - 73976 ([id number]) P3 - PATIENT W/SEVERE SYS DISEASE, QK - CONCESSION WORKER 2-4 CNCRNT ANES PROC, QX - INFORMATICA DEVELOPER SVC W/ MD MED DIRECTION
[2025-05-19] MEDS: TRANEXAMIC ACID 100 MG/ML INJ 1000 MG IV (10:50)
--- NOTE | 2025-05-19 12:25 | CRLHL7_ITS ---
For Patients: As a result of the Cures Act, medical imaging exams and procedure reports are released immediately into your electronic medical record. You may view this report before your referring provider. If you have questions, please contact your health care provider. Indication: Postop TKA Technique: Two views left knee Findings/Impression: Hardware from a left total knee arthroplasty is in satisfactory position. Bone alignment is normal. No sign of acute fracture. Postop changes are within normal limits. Dictated by Palomo Diaz MD @ 05/20/2025 11:06:22 AM (Electronically Signed)
--- NOTE | 2025-05-19 12:28 | P.ORPRC_ITS ---
Procedure Note Date of procedure: 05/19/25 Procedure: PREOPERATIVE DIAGNOSIS: Left knee osteoarthritis POSTOPERATIVE DIAGNOSIS: Left knee osteoarthritis NAME OF OPERATION: Left total knee arthroplasty SURGEON: Agustin Owens MD COMPUTER SCIENCE INTERN: DARWIN Theodore PA-C ANESTHESIA: Spinal ESTIMATED BLOOD LOSS: 0 mL COMPLICATIONS: None SPECIMENS: None DRAINS: None PREOPERATIVE ANTIBIOTICS: Ancef 2 grams, antibiotic impregnated cement IMPLANTS: 1. J&J Attune revision CRS # 5 posterior stabilized femur, 14 mm x 50 mm cemented stem 2. Revision CRS # 5 fixed-bearing tibia, 14 mm x 50 mm cemented stem 3. # 5 posterior stabilized, 8 mm fixed-bearing polyethylene 4. 38 patella INDICATIONS: The patient is a 54-year-old with a longstanding history of severe, unrelenting left knee pain secondary to end-stage (grade IV) left knee osteoarthritis. Despite appropriate nonoperative management, including activity modification, anti-inflammatories, [id number] pain medication, bracing, physical therapy, and injections they continue to have pain and disability. Operative intervention was offered. The risks, benefits and expected outcomes were discussed in detail. These included but were not limited to: Infection, bleeding, injury to blood vessel or nerve, venous thromboembolism. All questions were answered to their satisfaction. Use of an engineering inspection assistant was necessary throughout the case for patient positioning and safety, soft tissue retraction, and closure. A modifier 22 should be added to this case. The patient weighs 116 kg with a BMI of 43. There was a 40 mm layer of adipose over the extensor mechanism. In order to reduce the risk of aseptic loosening and infection in a patient this size, stemmed components and antibiotic impregnated cement were used. These factors added time and cost to complete the case. PROCEDURE: Spinal anesthesia was administered. The patient was placed supine on the operating table. The engineering inspection assistant made sure the patient was positioned appropriately. The lower extremity was prepped and draped in the usual sterile fashion. The limb was exsanguinated with the Jose bandage. The pneumatic tourniquet was inflated to 250 mmHg. A standard anterior incision was made with the knee in flexion. Subcutaneous dissection was sharply taken through fascial layer #1. Full-thickness medial and lateral flaps were elevated. The engineering inspection assistant retracted the soft tissues and protected them throughout the case. A standard subvastus approach was made. The patella was subluxed. The infrapatellar fat pad was debrided. The menisci and cruciate ligaments were sharply d?brided. Marginal osteophytes were d?brided with the rongeur. The drill was used to penetrate the femoral canal. The canal was aspirated and irrigated with pulse lavage. The intramedullary femoral guide was placed for a 5-degree valgus cut, removing 10 mm off the distal femur. The saw was used to make the cut. Whitesides line and the trans epicondylar axis were marked. The femoral sizing guide was pinned onto the distal femur. Three degrees of external rotation nicely parallels the transepicondylar axis. Pins were placed for posterior referencing. The four-in-one cutting guide was pinned onto the distal femur. The anterior, posterior, and chamfer cuts were made. The engineering inspection assistant protected the collateral ligaments. The revision trial was placed. The box cuts were made. The drill was used x2. The stemmed, boxed trial was placed and was an excellent fit. Attention was then turned to the proximal tibia. The extramedullary tibial guide was placed for a neutral varus/valgus cut with 5 degrees of posterior slope, removing 1 mm based off the medial tibial surface. The engineering inspection assistant protected the collateral ligaments and the neurovascular bundle. The saw was used to make the cut. Trial components were placed. The knee was nicely balanced in both flexion and extension. The trial components were removed. The tray was placed in appropriate rotation, parallel to our tibial cutting pins. It was pinned by the engineering inspection assistant and the drill x2 was used. The stemmed tibial trial was placed. The punch was used. The tray was removed. The punch was used again. Attention was then turned to the patella. [place] patellar thickness was 24 mm. The lobster claw resection guide was used with the 9.5 mm jarrod. The saw was used to make the cut. Drill holes were made by the engineering inspection assistant. The trial was placed and was an excellent fit. Cancellous surfaces were irrigated with pulse lavage and thoroughly dried by the engineering inspection assistant. We cemented the tibial component, then the femoral component. We impacted the 8 mm polyethylene onto the tibial tray. The knee was brought into full extension. We then cemented the patellar component. Excessive cement was removed. The cement was allowed to harden. The knee was taken through a range of motion and was found to be nicely balanced in both flexion and extension. The patella tracks centrally. The engineering inspection assistant did a three minute dilute Betadine solution soak. The engineering inspection assistant irrigated the wound with 3 liters of normal saline via pulse lavage. The engineering inspection assistant reapproximated the extensor mechanism with #1 Vicryl in an interrupted [id number] fashion. The engineering inspection assistant then ran the extensor mechanism with a #1 PDO Stratafix. The engineering inspection assistant closed the subcutaneous tissues with a 3-0 Stratafix and the skin with a running 3-0 Stratafix in a subcuticular fashion. Glue was used to seal the skin. The engineering inspection assistant placed a dry dressing. Sponge and needle counts were correct x2. The patient tolerated the procedure well. There were no apparent complications. They were carefully transferred to the hospital bed and taken to the postanesthesia care unit in satisfactory condition. PLAN: The patient will be mobilized with physical therapy. Aspirin will be used for DVT prophylaxis. They will be discharged to home once medically appropriate.
--- NOTE | 2025-05-19 13:36 | P.ANES_ITS ---
Anesthesia Charges Start Date/Time Anesthesia Start Date: 05/19/25 Anesthesia Start Time: 10:40 Stop Date/Time Anesthesia Stop Date: 05/19/25 Anesthesia Stop Time: 13:37 Coding CPT Codes CPT Codes: ANESTH KNEE ARTHROPLASTY - 14634 ([id number]) P3 - PATIENT W/SEVERE SYS DISEASE, QK - IT SENIOR ANALYST 2-4 CNCRNT ANES PROC
--- NOTE | 2025-05-19 13:36 | W.ANESCHARGE ---
Anesthesia Charges Start Date/Time Anesthesia Start Date: 05/19/25 Anesthesia Start Time: 10:40 Stop Date/Time Anesthesia Stop Date: 05/19/25 Anesthesia Stop Time: 13:37 Coding CPT Codes CPT Codes: ANESTH KNEE ARTHROPLASTY - 17897 ([id number]) P3 - PATIENT W/SEVERE SYS DISEASE, QK - METER READING CLERK 2-4 CNCRNT ANES PROC
--- NOTE | 2025-05-19 14:58 | PC.NURSE ---
Pt is doing well. Came to unit at 1410. , Roberto, is at bedside. Pt in A&Ox4. CWMS within normal limits. Surgical dressing remains clean, dry and intact. Pt denies pain and nausea at this time. Pt is tolerating ice chips and sips of water. Pt is having soft blood pressures and bradycardic, 48-52.
[2025-05-19] MEDS: CEFAZOLIN 2 GM in 0.9 % SODIUM CHLORIDE Mini-bag 100 ML IVPB (17:29)
[2025-05-19] MEDS: LACTATED RINGERS 1000 ML 1,000 ML 75 ML IV (17:29)
[2025-05-19] MEDS: SENNOSIDES 1 TAB TABLET 2 TAB PO (21:19)
[2025-05-19] MEDS: TRAZODONE HCL 50 MG TABLET 100 MG PO (21:19)
[2025-05-19] MEDS: ASPIRIN 81 MG TABLET EC PO (21:19)
--- NOTE | 2025-05-19 22:29 | P.IMCN_ITS ---
Date of Consult Patient: [facility] Patient Consult date: 05/19/25 Requesting Physician: Orthopedics Primary Care Provider: Cori Rogers, TRINA, BOAT DRIVER Consult Narrative Narrative: Pinky Land is a 54 year old woman who underwent an elective left total knee arthroplasty on 05/19/2025 at [facility]. No apparent complications. Estimated blood loss 0 mL. Continue to work to establish better postop pain control. Review of Systems Status of ROS: Reports: 6 or more systems reviewed and unremarkable except as noted in History and below Narrative: Blood sugars adequately managed with current level of support. Blood pressure is generally well controlled in the outpatient setting. Taking time off from work for this procedure and to recover. No recent illness. No recent fever, rigors, diaphoresis. No localizing symptoms that are concerning for her. No recent trauma, injury, or travel. [facility] Medical History Hyperlipidemia ?E78.5 - Hyperlipidemia, unspecified (ICD-10) Depression ?F32.A - Depression, unspecified (ICD-10) Aortic aneurysm ?I71.9 - Aortic aneurysm of unspecified site, without rupture (ICD-10) Arthritis ?M19.90 - Unspecified osteoarthritis, unspecified site (ICD-10) Asthma ?J45.909 - Unspecified asthma, uncomplicated (ICD-10) Gastroesophageal reflux disease ?K21.9 - Gastro-esophageal reflux disease without esophagitis (ICD-10) Inflammatory bowel disease ?K52.9 - Noninfective gastroenteritis and colitis, unspecified (ICD-10) Lesion of right lobe of liver ?K76.9 - Liver disease, unspecified (ICD-10) Type 2 diabetes mellitus ?E11.9 - Type 2 diabetes mellitus without complications (ICD-10) Hepatic steatosis ?K76.0 - Fatty (change of) liver, not elsewhere classified (ICD-10) Lumbar back pain ?M54.50 - Low back pain, unspecified (ICD-10) Perimenopausal symptoms ?N95.1 - Menopausal and female climacteric states (ICD-10) Atypical glandular cells on cervical Pap smear ?R87.619 - Unspecified abnormal cytological findings in specimens from cervix uteri (ICD-10) Abnormal uterine bleeding ?N93.9 - Abnormal uterine and vaginal bleeding, unspecified (ICD-10) Hepatic lesion ?K76.9 - Liver disease, unspecified (ICD-10) Snoring ?R06.83 - Snoring (ICD-10) Vitamin D deficiency ?E55.9 - Vitamin D deficiency, unspecified (ICD-10) Obesity ?E66.9 - Obesity, unspecified (ICD-10) Hypertension ?I10 - Essential (primary) hypertension (ICD-10) Insomnia ?G47.00 - Insomnia, unspecified (ICD-10) Acute cervical radiculopathy ?M54.12 - Radiculopathy, cervical region (ICD-10) Iron deficiency anemia ?D50.9 - Iron deficiency anemia, unspecified (ICD-10) Surgical History History of arthroplasty of left knee (05/19/25) ?Z96.652 - Presence of left artificial knee joint (ICD-10) History of tubal ligation ?Z98.51 - Tubal ligation status (ICD-10) History of left knee surgery ?Z98.890 - Other specified postprocedural states (ICD-10) History of foot surgery ?Z98.890 - Other specified postprocedural states (ICD-10) History of breast surgery ?Z98.890 - Other specified postprocedural states (ICD-10) Family History Mother Colon cancer Diabetes High blood pressure Father Diabetes High blood pressure Maternal Grandfather Diabetes High blood pressure Brother Heart disease High blood pressure Maternal Grandmother High blood pressure Sister High blood pressure Paternal Grandfather Parkinsonism Paternal Grandmother Stroke Social History Narrative: . Works at [employer]. No alcohol. Nonsmoker. No formal exercise. 3 children. What is your current living situation?: I presently have a place to live Problems where you live: no known problems In the past 12 months, utilities in danger of being shut off: no In past 12 months, lack of transportation kept you from medical appts, meetings, work, or getting things needed for daily living: no In the past 12 mos, have been you worried that your food would run out before you had money to buy more?: never true In the past 12 mos, the food you bought just didn't last and you didn't have money to buy more?: never true Highest level of school completed/degree received: some college, no degree Smoking Status: Never smoker Do you use any of these nicotine containing products: None Second hand tobacco smoke exposure: No How often do you have a drink containing alcohol: monthly or less Alcohol type: wine How often do you have six or more drinks on one occasion: Never AUDIT-C Alcohol total score: 1 Non-prescribed substance use: denies use Caffeine: Yes How often does anyone, including family, friends and others, physically hurt you : never How often does anyone, including family, friends and others, insult or talk down to you: never How often does anyone, including family, friends and others, threaten you with harm: never How often does anyone, including family, friends and others, scream or curse at you: never service: No Meds Home Medications and Allergies Home Medications ?Medication ?Instructions ?Recorded ?Confirmed ?Type cholecalciferol (vitamin D3) 1,250 1,250 mcg PO QWEEK #12 caps 11/30/23 05/19/25 Rx mcg (50,000 unit) capsule simvastatin 20 mg tablet 20 mg PO DAILY #90 tabs 11/0705/19/25 Rx diltiazem HCl 120 mg 120 mg PO BID #180 caps 06/1605/19/25 Rx capsule,extended release 12 hr valsartan 160 1 tab PO DAILY #90 tabs 06/1605/19/25 Rx mg-hydrochlorothiazide 25 mg tablet empagliflozin 10 mg tablet 10 mg PO DAILY 09/02/2403/08 History (Jardiance) citalopram 20 mg tablet 20 mg PO DAILY #30 tabs 03/1505/19/25 Rx spironolactone 25 mg tablet 25 mg PO DAILY 04/22/25 History acetaminophen 500 mg capsule 500 - 1,000 mg (1 - 2 x 5 00 mg) PO 05/19/25 Rx Q6H PRN pain #100 caps albuterol sulfate 90 mcg/actuation 2 inh inhalation Q4 H PRN 05/19/25 05/19/25 History aerosol inhaler (Ventolin HFA) aspirin 81 mg chewable tablet 81 mg PO BID for DVT pro phylaxis 05/19/25 Rx (Aspirin Childrens) 30 days #60 tabs omeprazole 40 mg capsule,delayed 40 mg PO DAILY 05/19/25 History release oxycodone 5 mg tablet 2.5 - 5 mg (0.5 - 1 x 5 mg) PO 05/19/25 Rx Q4-6H PRN Pain #42 tabs sennosides 8.6 mg tablet (Senna 17.2 mg (2 x 8.6 mg) P O BID PRN 05/19/25 Rx Lax) constipation #100 tabs trazodone 100 mg tablet 100 mg PO HS 05/19/25 History Allergies Allergy/AdvReac Type Severity Reaction Status Date / Time No Known Drug Allergies Allergy Verified 05/19/25 07:47 Exam Narrative: Exam Narrative: I examine her in her hospital room. Appears comfortable. Vision and hearing are adequate. Eating and drinking independently. Laying on her hospital bed with head of bed elevated 60? and legs outstretched in front of her. Alert and oriented x4. Conjugate gaze. Midline nasal septum. Moist buccal mucosa. Supple neck. Lungs clear to auscultation. Heart tones with regular rhythm. Abdomen with active bowel sounds, soft, nontender. Moves the toes on both feet. No edema. Skin is dry and intact. Const: Vital Signs, click to edit/add: Vital Signs - 24 hr 05/19/25 09:13 05/19/25 10:11 05/19/25 10:20 Temperature 97.5 F L Pulse Rate 66 66 63 Pulse Rate [Right Pulse Oximeter] Respiratory Rate 16 16 16 Blood Pressure 138/87 119/81 108/66 Blood Pressure [Ri ght Arm] Pulse Oximetry 98 98 97 Oxygen Delivery Me thod Room Air Nasal Cannula Nasal Cannula Oxygen Flow Rate 3 3 05/19/25 13:35 05/19/25 13:40 05/19/25 13:45 Temperature 97.6 F Pulse Rate 60 59 L 57 L Pulse Rate [Right Pulse Oximeter] Respiratory Rate 14 13 14 Blood Pressure 93/56 L 98/64 99/62 Blood Pressure [Ri ght Arm] Pulse Oximetry 91 92 93 Oxygen Delivery Me thod Room Air Nasal Cannula Oxygen Flow Rate 2 05/19/25 13:50 05/19/25 13:55 05/19/25 14:00 Temperature 96.9 F L Pulse Rate 58 L 54 L 58 L Pulse Rate [Right Pulse Oximeter] Respiratory Rate 15 14 12 Blood Pressure 96/67 101/64 100/64 Blood Pressure [Ri ght Arm] Pulse Oximetry 92 96 94 Oxygen Delivery Me thod Room Air Oxygen Flow Rate 1 05/19/25 14:10 05/19/25 14:15 05/19/25 14:30 Temperature 97.4 F L 97.0 F L Pulse Rate Pulse Rate [Right Pulse Oximeter] 54 L 50 L 55 L Respiratory Rate 12 12 14 Blood Pressure Blood Pressure [Ri ght Arm] 101/65 96/58 L 89/64 L Pulse Oximetry 88 92 91 Oxygen Delivery Me thod Nasal Cannula Nasal Cannula Nasal Cannula Oxygen Flow Rate 1 2 2 05/19/25 14:45 05/19/25 15:00 05/19/25 15:00 Temperature 97.1 F L 96.0 F L Pulse Rate Pulse Rate [Right Pulse Oximeter] 50 L 50 L 50 L Respiratory Rate 14 16 16 Blood Pressure Blood Pressure [Ri ght Arm] 102/64 97/65 Pulse Oximetry 92 94 Oxygen Delivery Me thod Nasal Cannula Room Air Oxygen Flow Rate 1 05/19/25 15:00 05/19/25 15:30 05/19/25 16:00 Temperature 96.8 F L 96.8 F L Pulse Rate Pulse Rate [Right Pulse Oximeter] 50 L 88 Respiratory Rate 16 14 14 Blood Pressure Blood Pressure [Ri ght Arm] 103/78 95/67 Pulse Oximetry 94 92 93 Oxygen Delivery Me thod Room Air Room Air Room Air Oxygen Flow Rate 05/19/25 17:00 05/19/25 18:10 05/19/25 18:14 Temperature 97.1 F L 96.9 F L 96.9 F L Pulse Rate Pulse Rate [Right Pulse Oximeter] 63 50 L 50 L Respiratory Rate 16 16 16 Blood Pressure Blood Pressure [Ri ght Arm] 99/76 99/76 99/76 Pulse Oximetry 93 88 88 Oxygen Delivery Me thod Room Air Room Air Room Air Oxygen Flow Rate 05/19/25 19:00 05/19/25 20:00 05/19/25 22:19 Temperature 97.2 F L 96.4 F L Pulse Rate 55 L Pulse Rate [Right Pulse Oximeter] 66 72 Respiratory Rate 16 18 Blood Pressure Blood Pressure [Ri ght Arm] 127/91 H 114/70 Pulse Oximetry 98 90 Oxygen Delivery Me thod Nasal Cannula Nasal Cannula Oxygen Flow Rate 1 1 Assessment and Plan Assessment and plan (1) Osteoarthritis of left knee: Problem comment: left knee pain secondary to osteoarthritis Status: Acute (2) Status post left knee replacement: Problem comment: 05/19/2025, [facility], Dr. Owens Status: Acute (3) Hypertension: Status: Acute (4) Type 2 diabetes mellitus: Status: Acute (5) Asthma: Status: Acute (6) Depression: Status: Acute (7) Gastroesophageal reflux disease: Status: Acute (8) Hepatic steatosis: Problem comment: Moderately severe ultrasound 11/02/2022 Status: Acute (9) Snoring: Status: Acute Plan 1. Reviewed impression, plans, recommendations with patient 2. Answered her questions are satisfaction 3. Continue supportive efforts 4. Patient agreeable to above stated plans and recommendations Total Time Spent Total Time Spent: 50 minutes
--- NOTE | 2025-05-19 23:25 | PC.NURSE ---
End of shift note (258)? ? Patient has been cooperative and pleasant throughout shift. She was admitted after a LKTA. Patient had several low blood pressures from arrival to early evening as well as heart rates <60 bpm. Vitals have been stable since 1800. Surgical dressing is intact and dry. Patient moves well to and from bed to bathroom. Patient has been reporting pain of 6/10 throughout the day, in spite of scheduled and PRN pain medications. Patient is voiding well. Lung sounds are clear bilaterally. Active bowel sounds. ?
[2025-05-20] MEDS: CEFAZOLIN 2 GM in 0.9 % SODIUM CHLORIDE Mini-bag 100 ML IVPB (01:05)
[2025-05-20 02:51] VITALS: BP 122/66; PULSE 84; RESP 16; TEMP 36.7; O2SAT 95
[2025-05-20 06:31] LABS: INR 1.09 (0.91-1.10); Prothrombin Time 14.9 Seconds
[2025-05-20 07:00] VITALS: BP 111/70; PULSE 90; RESP 16; RESP 18; TEMP 36.8; O2SAT 91
[2025-05-20 07:36] VITALS: PULSE 95
[2025-05-20] MEDS: ACETAMINOPHEN 500 MG TABLET 1000 MG PO (08:19)
[2025-05-20] MEDS: CELECOXIB 200 MG CAPSULE PO (08:20)
[2025-05-20] MEDS: CITALOPRAM HYDROBROMIDE 20 MG TABLET PO (08:38)
[2025-05-20] MEDS: SENNOSIDES 1 TAB TABLET 2 TAB PO (08:38)
[2025-05-20] MEDS: ASPIRIN 81 MG TABLET EC PO (08:38)
[2025-05-20] MEDS: OMEPRAZOLE 20 MG CAPSULE DR 40 MG PO (08:39)
--- NOTE | 2025-05-20 08:42 | PM.ORPN ---
Subjective Subjective Time Seen by Provider: 07:45 Date Seen: 05/20/25 Principal diagnosis: Day 1 s/p left total knee arthroplasty Interval history: Pinky is doing well this morning and is resting comfortably in bed. She c/o left knee pain that is well managed with oxycodone, celecoxib and Tylenol PRN. Reports she slept well. Denies: fever, chest pain, SOB, nausea, vomiting, numbness and tingling distally. Patient has not yet had a bowel movement and reports no flatulence yet. Patient feels ready to be discharged to home later today. No acute events over night. Ortho Exam Narrative Exam Narrative: Incision/Dressing: Dressing appears clean and dry. No drainage present. Mepilex intact. Left knee appears moderately swollen but supple with no obvious erythema, fluctuance or excessive warmth. No ecchymosis or erythematous streaking. Warmth around the wound is appropriate. Ice is being utilized as needed. CMS: Intact distally with 2+ Dorsalis pedis and Posterior Tibial pulses. 5/5 motor strength dorsal and plantar flexion. Confirmed sensation distally. Unable to perform straight leg raise. Calf: Bilateral calves are supple, with no swelling, pain, tenderness, erythema, discoloration or coolness to the touch. Constitutional: Patient is alert and oriented x3. Patient is in no acute distress and converses without labored breathing. Patient is able to make decisions and demonstrates good insight. Patient is pleasant and cooperative. Affect is full range and appropriate for the circumstances. Const Vital Signs, click to edit/add: Vital Signs - 24 hr 05/19/25 09:13 05/19/25 10:11 05/19/25 10:20 Temperature 97.5 F L Pulse Rate 66 66 63 Pulse Rate [Right Pulse Oximeter] Respiratory Rate 16 16 16 Blood Pressure 138/87 119/81 108/66 Blood Pressure [Right Arm] Pulse Oximetry 98 98 97 Oxygen Delivery Method Room Air Nasal Cannula Nasal Cannula Oxygen Flow Rate 3 3 05/19/25 13:35 05/19/25 13:40 05/19/25 13:45 Temperature 97.6 F Pulse Rate 60 59 L 57 L Pulse Rate [Right Pulse Oximeter] Respiratory Rate 14 13 14 Blood Pressure 93/56 L 98/64 99/62 Blood Pressure [Right Arm] Pulse Oximetry 91 92 93 Oxygen Delivery Method Room Air Nasal Cannula Oxygen Flow Rate 2 05/19/25 13:50 05/19/25 13:55 05/19/25 14:00 Temperature 96.9 F L Pulse Rate 58 L 54 L 58 L Pulse Rate [Right Pulse Oximeter] Respiratory Rate 15 14 12 Blood Pressure 96/67 101/64 100/64 Blood Pressure [Right Arm] Pulse Oximetry 92 96 94 Oxygen Delivery Method Room Air Oxygen Flow Rate 1 05/19/25 14:10 05/19/25 14:15 05/19/25 14:30 Temperature 97.4 F L 97.0 F L Pulse Rate Pulse Rate [Right Pulse Oximeter] 54 L 50 L 55 L Respiratory Rate 12 12 14 Blood Pressure Blood Pressure [Right Arm] 101/65 96/58 L 89/64 L Pulse Oximetry 88 92 91 Oxygen Delivery Method Nasal Cannula Nasal Cannula Nasal Cannula Oxygen Flow Rate 1 2 2 05/19/25 14:45 05/19/25 15:00 05/19/25 15:00 Temperature 97.1 F L 96.0 F L Pulse Rate Pulse Rate [Right Pulse Oximeter] 50 L 50 L 50 L Respiratory Rate 14 16 16 Blood Pressure Blood Pressure [Right Arm] 102/64 97/65 Pulse Oximetry 92 94 Oxygen Delivery Method Nasal Cannula Room Air Oxygen Flow Rate 1 05/19/25 15:00 05/19/25 15:30 05/19/25 16:00 Temperature 96.8 F L 96.8 F L Pulse Rate Pulse Rate [Right Pulse Oximeter] 50 L 88 Respiratory Rate 16 14 14 Blood Pressure Blood Pressure [Right Arm] 103/78 95/67 Pulse Oximetry 94 92 93 Oxygen Delivery Method Room Air Room Air Room Air Oxygen Flow Rate 05/19/25 17:00 05/19/25 18:10 05/19/25 18:14 Temperature 97.1 F L 96.9 F L 96.9 F L Pulse Rate Pulse Rate [Right Pulse Oximeter] 63 50 L 50 L Respiratory Rate 16 16 16 Blood Pressure Blood Pressure [Right Arm] 99/76 99/76 99/76 Pulse Oximetry 93 88 88 Oxygen Delivery Method Room Air Room Air Room Air Oxygen Flow Rate 05/19/25 19:00 05/19/25 20:00 05/19/25 22:19 Temperature 97.2 F L 96.4 F L Pulse Rate 55 L Pulse Rate [Right Pulse Oximeter] 66 72 Respiratory Rate 16 18 Blood Pressure Blood Pressure [Right Arm] 127/91 H 114/70 Pulse Oximetry 98 90 Oxygen Delivery Method Nasal Cannula Nasal Cannula Oxygen Flow Rate 1 1 05/19/25 23:00 05/19/25 23:00 05/19/25 23:00 Temperature Pulse Rate 69 Pulse Rate [Right Pulse Oximeter] 68 Respiratory Rate 16 16 Blood Pressure Blood Pressure [Right Arm] Pulse Oximetry 93 Oxygen Delivery Method Nasal Cannula Oxygen Flow Rate 1 05/19/25 23:00 05/20/25 02:51 05/20/25 07:00 Temperature 98.1 F 98.1 F 98.3 F Pulse Rate Pulse Rate [Right Pulse Oximeter] 68 84 90 Respiratory Rate 16 16 16 Blood Pressure Blood Pressure [Right Arm] 113/59 L 122/66 111/70 Pulse Oximetry 93 95 91 Oxygen Delivery Method Nasal Cannula Nasal Cannula Room Air Oxygen Flow Rate 1 1 Assessment and Plan Assessment and plan (1) Status post left knee replacement: Problem details: 05/19/2025, [facility], Dr. Owens Status: Acute Assessment and Plan: - Complete 23 hour perioperative antibiotics. - PT/OT consults for education and assistance. - Weight bear as tolerated with a walker for assistance. - Prescribed analgesics as needed. Patient is content with current narcotic medications. Minimize narcotic pain medication use; wean off and discontinue as soon as possible. - DVT prophylaxis: aspirin 81 mg BID x 30 days. Also, frequent ambulation and ankle pumps when sedentary. - Social consult for discharge planning. - Anticipate patient will be discharged to home later this morning if the patient remains medically stable, pain is controlled and is safe with ambulation. - Return to clinic in 1 week for a wound check. Mepilex dressing will be removed at this appointment. Remove sooner if dressing becomes saturated. - Return to clinic in [address] Owens. - Phone Orthopedics with any questions or concerns. [phone]
--- NOTE | 2025-05-20 12:12 | PC.NURSE ---
Discharge-- Pleasant and cooperative, alert and oriented patient discharged to home via wheelchair with . VSS and pt is afebrile. SPO2 maintained >90% on RA. Pain appears well managed with Oxycodone and Tylenol. Dressing to left knee is C/D/I and CMS WNL. Telemetry showed NSR and was dc'd. Discharge education was provided including diagnosis info, symptoms to report, medications and follow up plan. No further questions asked and SL was removed with tip intact.
== END 2025-05-20 11:50 | disposition home or self-care (01) ==
LOC: OR 08:27 → MEDSURG 08:27
PROVIDERS: PCP Nurse Practitioner Family; Visit Provider Orthopaedic Surgery
PROC: (CPT 27447; principal; 2025-05-19 10:00)
DX: M17.12 Unilateral primary osteoarthritis, left knee (principal); G89.18 Other acute postprocedural pain; R06.83 Snoring; E11.9 Type 2 diabetes mellitus without complications; Z68.41 Body mass index [BMI] 40.0-44.9, adult; E66.9 Obesity, unspecified; K21.9 Gastro-esophageal reflux disease without esophagitis; K76.0 Fatty (change of) liver, not elsewhere classified; J45.909 Unspecified asthma, uncomplicated; I10 Essential (primary) hypertension; Z79.84 Long term (current) use of oral hypoglycemic drugs; Z79.82 Long term (current) use of aspirin; E78.5 Hyperlipidemia, unspecified; F32.A Depression, unspecified
CPT/HCPCS: 27447; 01402; 36415; 64447; 64454; 73560; 76942; 82962; 85610; 97110; 97116; 97162; 97165; 97530; 97535; A9270; C1776; J0665; J0690; J1171; J2250; J2371; J2405; J2704; J3010; J3490; J7120

== ENCOUNTER 2025-07-24 09:57 | Outpatient (CLI) | payer MEDICAID, SELFPAY | END 2025-07-24 09:58 | disposition home or self-care (01) | LOC: NFLDREF 07-27 18:02 | PROVIDERS: PCP Nurse Practitioner Family; Referring Provider Nurse Practitioner Family; Visit Provider Nurse Practitioner Family | DX: E11.9 Type 2 diabetes mellitus without complications (principal); Z13.0 Encounter for screening for diseases of the blood and blood-forming organs and certain disorders involving the immune mechanism; E55.9 Vitamin D deficiency, unspecified | CPT/HCPCS: 80053; 80061; 82043; 82306; 82570; 82607; 84443; 85025 ==

== ENCOUNTER 2025-09-02 13:29 | Outpatient (CLI) | payer OTHER, SELFPAY ==
--- NOTE | 2025-09-02 13:20 | CRLHL7_ITS ---
For Patients: As a result of the Century Cures Act, medical imaging exams and procedure reports are released immediately into your electronic medical record. You may view this report before your referring provider. If you have questions, please contact your health care provider. INDICATION: BILATERAL SCREENING MAMMOGRAM, ASYMPTOMATIC 55 Y/O FEMALE COMPARISON: 01/14/2024, 01/09/2023, 11/29/2021 TECHNIQUE: Digital mammogram in CC and MLO projections including computer-aided detection (CAD) and tomosynthesis. BREAST COMPOSITION: The breasts are almost entirely fatty. FINDINGS: No suspicious findings. ASSESSMENT: BI-RADS 2 Benign RECOMMENDATION: Annual screening mammogram. A lay language report of this examination will be provided to the patient. Dictated by: Palomo Diaz MD @ 09/03/2025 09:46:55 (Electronically Signed)
== END 2025-09-02 13:30 | disposition home or self-care (01) ==
LOC: MAMMO 13:30
PROVIDERS: PCP Nurse Practitioner Family; Visit Provider Nurse Practitioner Family
DX: Z12.31 Encounter for screening mammogram for malignant neoplasm of breast (principal)
CPT/HCPCS: 77063; 77067